=== PATIENT | female | born 1965 | race Caucasian/White ===

== ENCOUNTER 2018-01-28 08:50 | Day surgery (SDC) | payer MEDICAID ==
[~2018-01-28 08:50] MED LIST: CEPH-571 PO; CLIN300C85 PO
[2018-01-28] MEDS ORDERED: LIDOcaine/PRILOcaine 5gm cream TP ONE (10:17)
[2018-01-28] MEDS ORDERED: SYN0.088T PO (12:09)
== END 2018-01-28 12:15 | disposition home or self-care (01) ==
LOC: WOUND CARE 08:50
PROVIDERS: ATTEND Surgery
DX: L97.212 Non-pressure chronic ulcer of right calf with fat layer exposed (principal); L97.511 Non-pressure chronic ulcer of other part of right foot limited to breakdown of skin; F17.200 Nicotine dependence, unspecified, uncomplicated; F10.10 Alcohol abuse, uncomplicated; F12.10 Cannabis abuse, uncomplicated
CPT/HCPCS: 11042; 11045; 87070; 87075; 87077; 87102; 87176; 87186; A6021; A6209; A6223; A6446

== ENCOUNTER 2018-02-04 09:00 | Day surgery (SDC) | payer MEDICAID ==
[~2018-02-04 09:00] MED LIST changes: -CEPH-571 PO; -CLIN300C85 PO; +SYN0.088T PO
[2018-02-04] MEDS ORDERED: LIDOcaine/PRILOcaine 5gm cream TP ONE (10:32)
== END 2018-02-04 10:30 | disposition home or self-care (01) ==
LOC: WOUND CARE 09:00
PROVIDERS: ATTEND Surgery
DX: L97.212 Non-pressure chronic ulcer of right calf with fat layer exposed (principal); L97.511 Non-pressure chronic ulcer of other part of right foot limited to breakdown of skin; F17.200 Nicotine dependence, unspecified, uncomplicated; F10.10 Alcohol abuse, uncomplicated; F12.10 Cannabis abuse, uncomplicated
CPT/HCPCS: 97597; 97598; A6021; A6206; A6212; A6213

== ENCOUNTER 2018-02-11 09:55 | Day surgery (SDC) | payer MEDICAID ==
[2018-02-11] MEDS ORDERED: LIDOcaine/PRILOcaine 5gm cream TP ONE (12:29)
[2018-02-11] MEDS ORDERED: LIDOcaine 1%/PF 5ML 10 MG/ML VIAL ONE (13:00)
[2018-02-11] MEDS ORDERED: RIFA300C4 (15:43)
== END 2018-02-11 14:00 | disposition home or self-care (01) ==
LOC: WOUND CARE 09:55
PROVIDERS: ATTEND Surgery
DX: L97.212 Non-pressure chronic ulcer of right calf with fat layer exposed (principal); L97.511 Non-pressure chronic ulcer of other part of right foot limited to breakdown of skin; L98.492 Non-pressure chronic ulcer of skin of other sites with fat layer exposed; F17.200 Nicotine dependence, unspecified, uncomplicated; F10.10 Alcohol abuse, uncomplicated; F12.10 Cannabis abuse, uncomplicated; Z86.19 Personal history of other infectious and parasitic diseases
CPT/HCPCS: 10061; 87070; 87075; 87077; 87102; 87186; 97597; 97598; A6021; A6209; A6223; A6266; J2001

== ENCOUNTER 2018-02-15 10:15 | Day surgery (SDC) | payer MEDICAID ==
[~2018-02-15 10:15] MED LIST changes: +RIFA300C4
[2018-02-15] MEDS ORDERED: LIDOcaine/PRILOcaine 5gm cream TP ONE (12:15)
[2018-02-15] MEDS ORDERED: TRAM50TA2 PO (14:54)
== END 2018-02-15 13:52 | disposition home or self-care (01) ==
LOC: WOUND CARE 10:15
PROVIDERS: ATTEND Surgery
DX: L97.212 Non-pressure chronic ulcer of right calf with fat layer exposed (principal); I83.012 Varicose veins of right lower extremity with ulcer of calf; L97.511 Non-pressure chronic ulcer of other part of right foot limited to breakdown of skin; L98.492 Non-pressure chronic ulcer of skin of other sites with fat layer exposed; N75.1 Abscess of Bartholin's gland; F17.200 Nicotine dependence, unspecified, uncomplicated; F10.10 Alcohol abuse, uncomplicated; F12.10 Cannabis abuse, uncomplicated; Z86.19 Personal history of other infectious and parasitic diseases
CPT/HCPCS: 97597; 97605; A6021; A6206; A6212; A6222

== ENCOUNTER 2018-02-18 09:50 | Outpatient (CLI) | payer MEDICAID ==
[~2018-02-18 09:50] MED LIST changes: +TRAM50TA2 PO
== END 2018-02-18 12:08 | disposition home or self-care (01) ==
LOC: WOUND CARE 09:50 → EDSTATUS 10:30 → WOUND CARE 12:08
PROVIDERS: ATTEND Surgery
DX: L97.212 Non-pressure chronic ulcer of right calf with fat layer exposed (principal); I83.012 Varicose veins of right lower extremity with ulcer of calf; L97.511 Non-pressure chronic ulcer of other part of right foot limited to breakdown of skin; L98.492 Non-pressure chronic ulcer of skin of other sites with fat layer exposed; N75.1 Abscess of Bartholin's gland; F17.200 Nicotine dependence, unspecified, uncomplicated; F10.10 Alcohol abuse, uncomplicated; F12.10 Cannabis abuse, uncomplicated; Z86.19 Personal history of other infectious and parasitic diseases
CPT/HCPCS: 97605; A6021; A6206; A6212; A6446

== ENCOUNTER 2018-02-22 10:00 | Day surgery (SDC) | payer MEDICAID ==
[2018-02-22] MEDS ORDERED: LIDOcaine/PRILOcaine 5gm cream TP ONE (11:41)
== END 2018-02-22 13:43 | disposition home or self-care (01) ==
LOC: WOUND CARE 10:00
PROVIDERS: ATTEND Surgery
DX: L97.212 Non-pressure chronic ulcer of right calf with fat layer exposed (principal); I83.012 Varicose veins of right lower extremity with ulcer of calf; L97.511 Non-pressure chronic ulcer of other part of right foot limited to breakdown of skin; L97.811 Non-pressure chronic ulcer of other part of right lower leg limited to breakdown of skin; L98.492 Non-pressure chronic ulcer of skin of other sites with fat layer exposed; N75.1 Abscess of Bartholin's gland; F17.200 Nicotine dependence, unspecified, uncomplicated; F10.10 Alcohol abuse, uncomplicated; F12.10 Cannabis abuse, uncomplicated; Z86.19 Personal history of other infectious and parasitic diseases
CPT/HCPCS: 15271; A6021; A6206; A6209; A6212; A6223; A6446; Q4101; A6250

== ENCOUNTER 2018-02-26 10:00 | Outpatient (CLI) | payer MEDICAID ==
[2018-03-02] MEDS ORDERED: IBUP-1985 PO (15:43)
== END 2018-02-26 11:30 | disposition home or self-care (01) ==
LOC: WOUND CARE 10:00 → EDSTATUS 10:30 → WOUND CARE 11:30
PROVIDERS: ATTEND Surgery
DX: L97.212 Non-pressure chronic ulcer of right calf with fat layer exposed (principal); I83.012 Varicose veins of right lower extremity with ulcer of calf; L97.511 Non-pressure chronic ulcer of other part of right foot limited to breakdown of skin; L97.811 Non-pressure chronic ulcer of other part of right lower leg limited to breakdown of skin; L98.492 Non-pressure chronic ulcer of skin of other sites with fat layer exposed; N75.1 Abscess of Bartholin's gland; F17.200 Nicotine dependence, unspecified, uncomplicated; F10.10 Alcohol abuse, uncomplicated; F12.10 Cannabis abuse, uncomplicated; Z86.19 Personal history of other infectious and parasitic diseases
CPT/HCPCS: 97605; A6021; A6206; A6212; A6446

== ENCOUNTER 2018-03-25 09:48 | Day surgery (SDC) | payer MEDICAID ==
[~2018-03-25 09:48] MED LIST changes: +IBUP-1985 PO
== END 2018-03-25 12:06 | disposition home or self-care (01) ==
LOC: WOUND CARE 09:48
PROVIDERS: ATTEND Surgery
DX: L97.211 Non-pressure chronic ulcer of right calf limited to breakdown of skin (principal); I83.012 Varicose veins of right lower extremity with ulcer of calf; L97.511 Non-pressure chronic ulcer of other part of right foot limited to breakdown of skin; L97.811 Non-pressure chronic ulcer of other part of right lower leg limited to breakdown of skin; L97.121 Non-pressure chronic ulcer of left thigh limited to breakdown of skin; N75.1 Abscess of Bartholin's gland; F17.200 Nicotine dependence, unspecified, uncomplicated; F10.10 Alcohol abuse, uncomplicated; F12.10 Cannabis abuse, uncomplicated; Z86.19 Personal history of other infectious and parasitic diseases
CPT/HCPCS: 97597; A6223; A6021; A6446

== ENCOUNTER 2018-04-01 09:55 | Day surgery (SDC) | payer MEDICAID | END 2018-04-01 12:03 | disposition home or self-care (01) | LOC: WOUND CARE 09:55 | PROVIDERS: ATTEND Surgery | DX: L97.212 Non-pressure chronic ulcer of right calf with fat layer exposed (principal); I83.012 Varicose veins of right lower extremity with ulcer of calf; N75.1 Abscess of Bartholin's gland; F17.200 Nicotine dependence, unspecified, uncomplicated; F10.10 Alcohol abuse, uncomplicated; F12.10 Cannabis abuse, uncomplicated; Z86.19 Personal history of other infectious and parasitic diseases | CPT/HCPCS: 97597; A6223; A6021; A6446 ==

== ENCOUNTER 2018-04-06 09:50 | Outpatient (CLI) | payer MEDICAID | END 2018-04-06 10:14 | disposition home or self-care (01) | LOC: WOUND CARE 09:50 → EDSTATUS 10:00 → WOUND CARE 10:14 | PROVIDERS: ATTEND Surgery | DX: I83.012 Varicose veins of right lower extremity with ulcer of calf (principal); L97.212 Non-pressure chronic ulcer of right calf with fat layer exposed; N75.1 Abscess of Bartholin's gland; F17.200 Nicotine dependence, unspecified, uncomplicated; F10.10 Alcohol abuse, uncomplicated; F12.10 Cannabis abuse, uncomplicated; Z86.19 Personal history of other infectious and parasitic diseases | CPT/HCPCS: 99211; A6222; A6021; A6446 ==

== ENCOUNTER 2018-04-13 09:51 | Day surgery (SDC) | payer MEDICAID | END 2018-04-13 11:01 | disposition home or self-care (01) | LOC: WOUND CARE 09:51 | PROVIDERS: ATTEND Surgery | DX: I83.012 Varicose veins of right lower extremity with ulcer of calf (principal); L97.212 Non-pressure chronic ulcer of right calf with fat layer exposed; N75.1 Abscess of Bartholin's gland; F17.200 Nicotine dependence, unspecified, uncomplicated; F10.10 Alcohol abuse, uncomplicated; F12.10 Cannabis abuse, uncomplicated; Z86.19 Personal history of other infectious and parasitic diseases | CPT/HCPCS: 97597; A6206; A6212 ==

== ENCOUNTER 2018-04-29 09:49 | Day surgery (SDC) | payer MEDICAID ==
[2018-04-29] MEDS ORDERED: LIDOcaine/PRILOcaine 5gm cream TP ONE (10:18)
--- NOTE | 2018-04-29 13:48 | NUR ---
Patient ambulated independently from [facility] and was admitted to outpatient wound care for physician visit with Yuri Neal MD. Dressing removed, wound cleansed and lidocaine applied per order. Patient assessed for changes in conditions, medications and medical history. Dr. Neal at bedside accompanied by RN. Wound assessed, time out performed by MD/RN. Wound debrided as detailed in the physician progress/procedure note. Plan of care discussed with patient. Dressings placed per MD orders. Patient instructed on the signs and symptoms of infection and to call the Wound Center if any occur or to go to the ED if we are closed: Increased pain in wound Increase in drainage from the wound Redness in the skin surrounding the wound Bleeding from the wound Temperature of 101 or greater Patient instructed that the weight of their body puts a large amount of pressure on their wounds. This pressure keeps the new tissue from growing and inhibits new blood vessels from forming. Explained that, if they continue to bear weight on a body part that has a wound, the time it takes to heal the wound increases, the wound may get worse or the wound may not heal at all. Patient verbalized understanding of all discharge instructions and plan of care and ambulated independently out to [facility] in stable condition with no sign or symptom of distress at time of discharge. Addendum: 04/29/18 at 1349 by Chandrika Mckeon RN Amended: Links added.
== END 2018-04-29 11:48 | disposition home or self-care (01) ==
LOC: WOUND CARE 09:49
PROVIDERS: ATTEND Surgery
DX: I83.012 Varicose veins of right lower extremity with ulcer of calf (principal); L97.212 Non-pressure chronic ulcer of right calf with fat layer exposed; L89.892 Pressure ulcer of other site, stage 2; N75.1 Abscess of Bartholin's gland; J44.9 Chronic obstructive pulmonary disease, unspecified; E03.9 Hypothyroidism, unspecified; F10.10 Alcohol abuse, uncomplicated; F12.10 Cannabis abuse, uncomplicated; F17.210 Nicotine dependence, cigarettes, uncomplicated; Z86.19 Personal history of other infectious and parasitic diseases; Z79.899 Other long term (current) drug therapy; Z71.51 Drug abuse counseling and surveillance of drug abuser
CPT/HCPCS: 17250; 97597; A6021; A6212

== ENCOUNTER 2018-05-06 09:50 | Day surgery (SDC) | payer MEDICAID ==
--- NOTE | 2018-05-06 14:41 | NUR ---
1000 Patient ambulated safely into [facility]. Patient admitted to outpatient wound care clinic for follow-up visit with physician. Patient placed in isolation per isolation protocol. Dressing removed, wound cleansed. Patient assessed for changes in conditions, medications and medical history. Patient showed no s/s of distress at time of assessment. 1125 at bedside accompanied by RN. Wounds assessed, time out performed and debridement done today as detailed in the physician progress/procedure note. Plan of care discussed with patient. Dressings placed by wound care staff. Patient instructed on the signs and symptoms of infection and to call the Wound Center if any occur or to go to the ED if we are closed: Increased pain in wound Increase in drainage from the wound Redness in the skin surrounding the wound Bleeding from the wound Temperature of 101 or greater Patient instructed that the weight of their body puts a large amount of pressure on their wounds. This pressure keeps the new tissue from growing and inhibits new blood vessels from forming. Explained that, if they continue to bear weight on a body part that has a wound, the time it takes to heal the wound increases, the wound may get worse or the wound may not heal at all. Patient verbalized understanding of all discharge instructions and plan of care. Patient ambulated independently out to [facility] and is in stable condition with no sign or symptom of distress at time of discharge.
== END 2018-05-06 12:05 | disposition home or self-care (01) ==
LOC: WOUND CARE 09:50
PROVIDERS: ATTEND Surgery
DX: I83.012 Varicose veins of right lower extremity with ulcer of calf (principal); L97.212 Non-pressure chronic ulcer of right calf with fat layer exposed; L89.892 Pressure ulcer of other site, stage 2; N75.1 Abscess of Bartholin's gland; J44.9 Chronic obstructive pulmonary disease, unspecified; E03.9 Hypothyroidism, unspecified; F10.10 Alcohol abuse, uncomplicated; F12.10 Cannabis abuse, uncomplicated; F17.210 Nicotine dependence, cigarettes, uncomplicated; Z86.19 Personal history of other infectious and parasitic diseases; Z79.899 Other long term (current) drug therapy; Z71.51 Drug abuse counseling and surveillance of drug abuser
CPT/HCPCS: 97597; A6222; A6021; A6212

== ENCOUNTER 2018-05-13 09:55 | Day surgery (SDC) | payer MEDICAID ==
[~2018-05-13 09:55] MED LIST changes: -RIFA300C4
[2018-05-13] MEDS ORDERED: LIDOcaine/PRILOcaine 5gm cream TP ONE (11:23)
--- NOTE | 2018-05-13 13:37 | NUR ---
Patient ambulated safely into [facility]. Patient admitted to outpatient wound care clinic for follow-up visit with physician. Dressing removed, wound cleansed and Emla cream applied per order. Patient assessed for changes in conditions, medications and medical history. Patient showed no s/s of distress at time of assessment. [id number] at bedside accompanied by RN. Wounds assessed and wound #1 debrided with a scalpel. Minimal bleeding noted. Hemostasis achieve with applied pressure. Patient tolerated procedure well. Dressings applied per physician orders. Patient instructed on the signs and symptoms of infection and to call the Wound Center if any occur or to go to the ED if we are closed: Increased pain in wound Increase in drainage from the wound Redness in the skin surrounding the wound Bleeding from the wound Temperature of 101 or greater Patient instructed that the weight of their body puts a large amount of pressure on their wounds. This pressure keeps the new tissue from growing and inhibits new blood vessels from forming. Explained that, if they continue to bear weight on a body part that has a wound, the time it takes to heal the wound increases, the wound may get worse or the wound may not heal at all. Patient verbalized understanding of all instructions and POC. Patient instructed to return to wound care clinic for scheduled follow-up appointment with physician. Patient left in stable condition with no complaints. Addendum: 05/13/18 at 1342 by Chandrika Mckeon RN Amended: Links added.
== END 2018-05-13 12:02 | disposition home or self-care (01) ==
LOC: WOUND CARE 09:55
PROVIDERS: ATTEND Surgery
DX: I83.012 Varicose veins of right lower extremity with ulcer of calf (principal); L97.212 Non-pressure chronic ulcer of right calf with fat layer exposed; L89.892 Pressure ulcer of other site, stage 2; N75.1 Abscess of Bartholin's gland; J44.9 Chronic obstructive pulmonary disease, unspecified; E03.9 Hypothyroidism, unspecified; F10.10 Alcohol abuse, uncomplicated; F12.10 Cannabis abuse, uncomplicated; F17.210 Nicotine dependence, cigarettes, uncomplicated; Z86.19 Personal history of other infectious and parasitic diseases; Z79.899 Other long term (current) drug therapy; Z71.51 Drug abuse counseling and surveillance of drug abuser; Z86.14 Personal history of Methicillin resistant Staphylococcus aureus infection
CPT/HCPCS: 97597; A6021; A6206; A6212

== ENCOUNTER 2018-05-20 09:53 | Outpatient (CLI) | payer MEDICAID ==
[2018-05-20] MEDS ORDERED: LIDOcaine/PRILOcaine 5gm cream TP ONE (11:35)
[2018-05-20] MEDS ORDERED: mupirocin 2% ointment 22GM ONE (12:16)
[2018-05-20] MEDS ORDERED: CIPR-259 PO (15:33)
--- NOTE | 2018-05-20 15:34 | NUR ---
Patient ambulated independently from [facility] and was admitted to outpatient wound care for physician visit. Dressing removed, wound cleansed and Emla applied per order. Patient assessed for changes in conditions, medications and medical history. Dr. Neal at bedside accompanied by RN. Wounds assessed and diagnosed as healed. New wound located on right great toe space noted. No debridement was done. Plan of care discussed with patient. Dressings placed per MD orders. Patient instructed on the signs and symptoms of infection and to call the Wound Center if any occur or to go to the ED if we are closed: Increased pain in wound Increase in drainage from the wound Redness in the skin surrounding the wound Bleeding from the wound Temperature of 101 or greater Patient instructed that the weight of their body puts a large amount of pressure on their wounds. This pressure keeps the new tissue from growing and inhibits new blood vessels from forming. Explained that, if they continue to bear weight on a body part that has a wound, the time it takes to heal the wound increases, the wound may get worse or the wound may not heal at all. Patient verbalized understanding of all discharge instructions and plan of care and ambulated independently out to [facility] in stable condition with no sign or symptom of distress at time of discharge. Addendum: 05/20/18 at 1536 by Chandrika Mckeon RN Amended: Links added.
== END 2018-05-20 12:22 | disposition home or self-care (01) ==
LOC: WOUND CARE 09:53 → EDSTATUS 10:00 → WOUND CARE 12:22
PROVIDERS: ATTEND Surgery
DX: L89.892 Pressure ulcer of other site, stage 2 (principal); L98.491 Non-pressure chronic ulcer of skin of other sites limited to breakdown of skin; I87.2 Venous insufficiency (chronic) (peripheral); N75.1 Abscess of Bartholin's gland; J44.9 Chronic obstructive pulmonary disease, unspecified; E03.9 Hypothyroidism, unspecified; F10.10 Alcohol abuse, uncomplicated; F12.10 Cannabis abuse, uncomplicated; F17.210 Nicotine dependence, cigarettes, uncomplicated; Z86.19 Personal history of other infectious and parasitic diseases; Z79.899 Other long term (current) drug therapy; Z71.51 Drug abuse counseling and surveillance of drug abuser; Z86.14 Personal history of Methicillin resistant Staphylococcus aureus infection
CPT/HCPCS: G0463

== ENCOUNTER 2018-05-27 10:06 | Outpatient (CLI) | payer MEDICAID ==
[~2018-05-27 10:06] MED LIST changes: +CIPR-259 PO
--- NOTE | 2018-05-27 14:47 | NUR ---
Patient ambulated independently from [facility] and was admitted to outpatient wound care for physician visit with Yuri Neal MD. Patient assessed for changes in conditions, medications and medical history. Dr. Neal at bedside accompanied by RN. Wound assessed and no debridement was done. Patient was diagnosed as healed. Patient instructed on the signs and symptoms of infection and to call the Wound Center if any occur or to go to the ED if we are closed: Increased pain in wound Increase in drainage from the wound Redness in the skin surrounding the wound Bleeding from the wound Temperature of 101 or greater Patient verbalized understanding of all discharge instructions and plan of care and ambulated independently out to [facility] in stable condition with no sign or symptom of distress at time of discharge. Addendum: 05/27/18 at 1452 by Chandrika Mckeon RN Amended: Links added.
== END 2018-05-27 11:18 | disposition home or self-care (01) ==
LOC: WOUND CARE 10:06
PROVIDERS: ATTEND Surgery
DX: L98.491 Non-pressure chronic ulcer of skin of other sites limited to breakdown of skin (principal); L03.031 Cellulitis of right toe; I87.2 Venous insufficiency (chronic) (peripheral); N75.1 Abscess of Bartholin's gland; J44.9 Chronic obstructive pulmonary disease, unspecified; E03.9 Hypothyroidism, unspecified; F10.10 Alcohol abuse, uncomplicated; F12.10 Cannabis abuse, uncomplicated; F17.210 Nicotine dependence, cigarettes, uncomplicated; Z86.19 Personal history of other infectious and parasitic diseases; Z79.899 Other long term (current) drug therapy; Z71.51 Drug abuse counseling and surveillance of drug abuser; Z86.14 Personal history of Methicillin resistant Staphylococcus aureus infection
CPT/HCPCS: G0463

== ENCOUNTER 2019-05-20 11:53 | Emergency (ER) | payer MEDICAID ==
[~2019-05-20] VITALS: Ht 170.2 cm; Wt 80.0 kg
[2019-05-20 12:06] VITALS: BP 146/90
[2019-05-20] MEDS ORDERED: CLIN-90 PO (12:49)
== END 2019-05-20 13:17 | disposition home or self-care (01) ==
LOC: ER 11:53
DX: L03.111 Cellulitis of right axilla (principal); Z86.14 Personal history of Methicillin resistant Staphylococcus aureus infection; Z88.0 Allergy status to penicillin; Z88.5 Allergy status to narcotic agent; Z88.6 Allergy status to analgesic agent; Z79.899 Other long term (current) drug therapy
CPT/HCPCS: 99283

== ENCOUNTER 2024-08-31 11:46 | Inpatient (IN) | payer MEDICARE, MEDICAID ==
[~2024-08-31] VITALS: Ht 170.2 cm; Wt 96.3 kg
[~2024-08-31 11:46] MED LIST changes: +CLIN-97 PO; +methylPREDNISolone SOD SUCC 1000 MG in D5W 50ml IVPB (58ML) IV ONE
[2024-08-31 12:40] LABS: BASOPHILS % (AUTO) 0.8 % (0-1); EOSINOPHILS # (AUTO) 0.1 X10'3 (0-0.9); EOSINOPHILS % (AUTO) 1.9 % (0-6); HEMATOCRIT 34.2 % (35.0-45.0); HEMOGLOBIN 11.2 g/dl (12.0-16.0); LYMPHOCYTES # (AUTO) 0.4 X10'3 (1.1-4.8); LYMPHOCYTES % (AUTO) 12.2 % (21-51); MEAN CORPUSCULAR HEMOGLOBIN 27.7 PG (27.0-31.0); MEAN CORPUSCULAR HGB CONC 32.6 g/dL (33.0-36.5); MEAN PLATELET VOLUME 10.7 FL (7.4-10.4); MONOCYTES # (AUTO) 0.2 X10'3 (0-0.9); MONOCYTES % (AUTO) 6.9 % (2-12); NEUTROPHILS # (AUTO) 2.3 X10'3 (1.8-7.7); NEUTROPHILS % (AUTO) 78.2 % (42-75); RED BLOOD COUNT 4.03 X10'6 (4.20-5.60); RED CELL DISTRIBUTION WIDTH 14.2 % (11.5-14.5); WHITE BLOOD COUNT 2.9 X10'3 (4.5-11.0)
[2024-08-31 13:05] LABS: ALBUMIN 2.7 G/DL (3.4-5.0); ANION GAP 9 (8-16); BLOOD UREA NITROGEN 16 MG/DL (7-18); BUN/CREATININE RATIO 12.5 (10.0-20.0); CALCIUM 8.8 MG/DL (8.5-10.1); CHLORIDE 106 MMOL/L (99-107); CREATININE 1.28 MG/DL (0.40-0.90); GLUCOSE 85 MG/DL (70-104); POTASSIUM 4.1 MMOL/L (3.5-5.1); SODIUM 142 MMOL/L (135-145); eCRCL 44 ML/MIN; eGFR 43 ML/MIN
[2024-08-31 13:20] LABS: C-REACTIVE PROTEIN 1.58 MG/DL (0.0-0.5)
[2024-08-31 13:27] LABS: APTT 26 SECONDS (22-32); D-DIMER 2.36 MG/L FEU (0-0.50); PROTHROMBIN TIME 10.3 SECONDS (9.0-12.0)
[2024-08-31 13:29] LABS: PLATELET ESTIMATE DECREASED; TOTAL CELLS COUNTED 100
[2024-08-31 13:37] LABS: PLATELET COUNT 3 X10'3 (140-440)
[2024-08-31] MEDS ORDERED: methylPREDNISolone sod succ/PF 40mg inj. IV ONE (14:00)
--- NOTE | 2024-08-31 14:02 | Physician Documentation ---
History of Present Illness ~ Chief Complaint: Wound Stated Complaint: POSS DVT Time Seen by MD: 12:21 Primary Medical Doctor: DR. AMOS SNYDER Patient is seen today with complaints of newly appearing rash just over the last few days on her lower extremities and progressing up her upper extremities as well as very easy bruising of her upper extremities. Patient states she does have a mild headache currently. Patient denies any chest pain or shortness of breath or abdominal pain or recent injury or nausea, vomiting, diarrhea. Patient denies taking any blood thinners or anticoagulants. Patient denies any personal history of cancer. Medication Reconciliation Allergies: Coded Allergies: Penicillins (Verified Allergy, Unknown, VOMTING, HIVES, ITCHING, 08/31/24) acetaminophen (Verified Allergy, Unknown, LIVER PROBLEMS, 08/31/24) codeine (Verified Adverse Reaction, Unknown, VOMITING, 08/31/24) Scheduled Bupropion Hcl (Bupropion Hcl Sr), 1 TAB PO Q12H, (Reported) Bupropion Hcl SR* (Wellbutrin SR*), 1 TAB PO DAILY, (Reported) Cyclobenzaprine HCl (Cyclobenzaprine HCl), 1 TAB PO BID, (Reported) Gabapentin (Gabapentin), 3 CAP PO Q8H, (Reported) Levothyroxine Sodium* (Synthroid*), 137 MCG PO DAILY, (Reported) Omeprazole (Prilosec), 0.5 CAP PO BKF, (Reported) Discontinued Medications Ciprofloxacin HCl (Cipro), Unknown Dose PO Q12H, (Reported) Discontinued Reason: completed med therapy Clindamycin HCL* (Clindamycin HCL*), 1 CAP PO Q6H Discontinued Reason: patient no longer taking Fluticasone/Umeclidin/Vilanter (Trelegy Ellipta 100-62.5-25), 1 PUFFS INH DAILY, (Reported) Discontinued Reason: patient no longer taking Ibuprofen (Ibuprofen), 1 TAB PO DAILY, (Reported) Discontinued Reason: patient no longer taking Tramadol HCl (Tramadol HCl), 1 TABLET PO BID, (Reported) Discontinued Reason: patient no longer taking Past Medical History Past Medical History: MRSA Abscess Past Surgical History: no surgical history Drug Use: none Lives with: Family Lives In: Home Occupation: employed Review of Systems Constitutional: Denies: chills, fever, weakness Eyes: Denies: pain, blurred vision ENT: Denies: ear pain, nose pain, throat pain, mouth pain Respiratory: Denies: cough, shortness of breath Cardiovascular: Denies: chest pain, palpitations Gastrointestinal: Denies: abdominal pain, nausea, vomiting Genitourinary: Denies: burning, dysuria Female Genitalia: Denies: vaginal discharge, pelvic pain Neurological: Denies: headache, dizziness Musculoskeletal: Denies: pain, swelling Integumentary: Denies: rash, lesions Allergic/Immunologic: Denies: hives, itching Hematologic/Lymphatic: Denies: no symptoms reported Psychiatric: Denies: depression, anxiety Physical Exam Vital Signs: Temperature: 97.6, Heart Rate: 90, Respiratory Rate: 18, BP: 132/80, Pulse Oximetry: 97, Weight: 96.300 Physical Exam General: Awake and Alert, no acute distress. HEENT: Conjunctiva pink, Sclera clear, Mucus Membranes moist. Neck: Supple without masses and tenderness. Resp: Unlabored. Lungs clear to auscultation bilaterally. Heart: Regular Rate and rhythm, normal S1 and S2 without murmur, rub or gallop. Abdomen: Soft and non tender no organomegaly Extremities: No cyanosis,clubbing or edema. Skin: On exam the patient does have petechial rash of bilateral lower extremities worse on the right lower extremity. Patient also has some petechiae scattered progressing up her legs and arms. Patient has multiple bruises and superficial hematomas on her arms. Progress Progress Note Doctor Filiberto I discussed this case with the physician horticultural nursery assistant and helped with management and disposition 2:00 p.m. I discussed the case with Dr. Lemus critical care paper folder who recommended consulting Hematology. He did not think she needed to be in the ICU 3:00 p.m. Hematology at [facility] refused consult 3:31 p.m. 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 He recommended dexamethasone 40 mg daily. Follow up Jonathan TS 13/ hemolysis labs Results/Orders Reviewed/noted all lab results: Yes Results/Orders Orders - JANELLE DAVE MD Culture Blood (08/31/24 12:10) Saline Lock (08/31/24 12:10) Cult Mrsa Screen (08/31/24 12:10) [id number] Activity (08/31/24 13:59) Completed Orders - JANELLE DAVE MD Cbc/Diff (08/31/24 12:10) Procalcitonin (08/31/24 12:10) BMP (08/31/24 12:10) Lacticsepsis (08/31/24 12:10) C-Reactive Protein (08/31/24 12:25) Man Diff (08/31/24 12:25) Pathology Review (08/31/24 12:25) Fibrinogen (08/31/24 14:02) Methylprednisolone Sod Succ (Solumedrol (08/31/24 14:25) Hgb A1c (08/31/24 12:25) MG (08/31/24 12:25) PBNP (08/31/24 12:25) PHOS (08/31/24 12:25) Vital Signs 08/31/24 08/31/24 12:06 13:59 Temp 97.6 Pulse 90 87 Resp 18 16 B/P (MAP) 132/80 128/74 (92) Pulse Ox 97 98 Laboratory Tests Test 08/31/24 12:25 08/31/24 12:52 08/31/24 14:14 White Blood Count 2.9 L Red Blood Count 4.03 L Hemoglobin 11.2 L Hematocrit 34.2 L Mean Corpuscular Volume 85.0 Mean Corpuscular Hemoglobin 27.7 Mean Corpuscular Hemoglobin Concent 32.6 L Red Cell Distribution Width 14.2 Platelet Count 3 *L Mean Platelet Volume 10.7 H Neutrophils (%) (Auto) 78.2 H Lymphocytes (%) (Auto) 12.2 L Monocytes (%) (Auto) 6.9 Eosinophils (%) (Auto) 1.9 Basophils (%) (Auto) 0.8 Neutrophils # (Auto) 2.3 Lymphocytes # (Auto) 0.4 L Monocytes # (Auto) 0.2 Eosinophils # (Auto) 0.1 Basophils # (Auto) 0.0 CBC Comment Differential Total Cells Counted 100 Neutrophils % (Manual) 77.0 H Lymphocytes % (Manual) 15.0 L Monocytes % (Manual) 7.0 Eosinophils % (Manual) 1.0 Platelet Estimate Decreased Red Blood Cell Morphology Normal Basophilic Stippling Erythrocyte Sedimentation Rate 80 H Hematology Pathologist Comment See note D-Dimer Comment Coagulation Comments Sodium Level 142 Potassium Level 4.1 Chloride Level 106 Carbon Dioxide Level 27.0 Anion Gap 9 Blood Urea Nitrogen 16 Creatinine 1.28 H Estimated GFR/1.73 m2 43 BUN/Creatinine Ratio 12.5 Glucose Level 85 Hemoglobin A1c 5.2 Lactic Acid Level 0.7 Calcium Level 8.8 Phosphorus Level 3.7 Magnesium Level 2.0 C-Reactive Protein 1.58 H Pro-B-Type Natriuretic Peptide 277 H Albumin 2.7 L Procalcitonin < 0.05 Chemistry Comments Prothrombin Time 10.3 INR International Normalized Ratio 1.0 Activated Partial Thromboplast Time 26 D-Dimer 2.36 H Total Creatine Kinase 68 Lipase 22 Thyroid Stimulating Hormone (TSH) 0.23 L Fibrinogen 489 H Coagulation Clinical Comments Microbiology Date/Time Source Procedure Growth Status 08/31/24 12:29 Blood Arm Right Blood Culture - Preliminary NEGATIVE (LESS THAN 24 HOURS) Resulted Medical Decision Making Findings Patient is seen today with complaints of newly appearing rash just over the last few days on her lower extremities and progressing up her upper extremities as well as very easy bruising of her upper extremities. Patient states she does have a mild headache currently. Patient denies any chest pain or shortness of breath or abdominal pain or recent injury or nausea, vomiting, diarrhea. Patient denies taking any blood thinners or anticoagulants. Patient denies any personal history of cancer. Patient's initial labs did show critical value of low platelets at 3. Patient does have a chronic pancytopenia. Patient is lucid and does complain of a mild headache. CT scan of head was ordered and returned without any acute changes. We did consult heme Onc at [facility] who advised high dose steroids. Patient was admitted to hospitalist with the directive and direction of administration of high-dose steroids and platelets. 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 Patient does have a chronic pancytopenia. Patient is lucid and does complain of a mild headache. CT scan of head was ordered and returned without any acute changes. We did consult heme Onc at [facility] who advised high dose steroids. Patient was admitted to hospitalist with the directive and direction of administration of high-dose steroids and platelets. Referrals: NO PRIMARY CARE PROVIDER (PCP) Critical Care Note Total Time (mins): 30 Critical Care Note The very real possibility of a deterioration of this patient's condition required the highest level of my preparedness for sudden, emergent intervention. I provided critical care services, which included medication orders, frequent reevaluations of the patient's condition and response to treatment, ordering and reviewing test results, and discussing the case with various consultants. Excludes time spent performing separately billable procedures. The critical care time associated with the care of the patient was 30 minutes in the management of severe life-threatening thrombocytopenia with active bleeding requiring platelet transfusion Signature Scribe Signature: No scribe Attestation: No no scribe BART CHONG August 31, 2024 14:02 JANELLE DAVE MD August 31, 2024 15:33
--- NOTE | 2024-08-31 14:44 | RADIOLOGY REPORT ---
CLINICAL INFORMATION: Low platelet count with headache. TECHNIQUE: Axial imaging was obtained through the brain without contrast. Coronal and sagittal reform atted images were obtained, reviewed, and stored. Images were reviewed in brain and bone windows. Al l CT scans at this medical facility are performed using dose modulation techniques as appropriate to a performed exam including the following: Automated exposure control was utilized; adjustment of the MA and/or KV according to patient size; and use of iterative reconstruction technique. CTDIvol = 39.7 9 mGy DLP = 639.38 mGy-cm COMPARISON: None FINDINGS: There is no acute intracranial hemorrhage. No mass effect or midline shift. The ventricles and sulci are within normal limits in size for age. Basal cisterns are patent. The calvarium is unre markable. Moderate fluid levels in the maxillary sinuses partially visualized. Mastoid air cells are clear IMPRESSION: 1. No CT evidence of acute intracranial abnormality. 2. Fluid levels in the maxillary sinuses, likely due to sinusitis. Correlate with clinical findings.
[2024-08-31] MEDS: methylPREDNISolone SOD SUCC 1000 MG in D5W 50ml IVPB (58ML) IV ONE (15:26)
[2024-08-31 15:42] LABS: FIBRINOGEN 489 MG/DL (177-424)
[2024-08-31] MEDS ORDERED: bisacodyl 10mg suppository rectal RC PRN (16:40)
[2024-08-31] MEDS ORDERED: diphenhydrAMINE 50 mg/ml inj IV PRN (16:40)
[2024-08-31] MEDS ORDERED: mag hydrox/Alum hydrox/simeth 30ml oral suspension PO PRN (16:40)
[2024-08-31] MEDS ORDERED: magnesium sulf-water 4G/100mL 100 ML IV PRN (16:40)
[2024-08-31] MEDS ORDERED: magnesium sulf-water 2g/50mL 50 ML IV PRN (16:40)
[2024-08-31] MEDS ORDERED: ondansetron/PF 4mg/2ml inj IV PRN (16:40)
[2024-08-31] MEDS ORDERED: potassium Cl 40MEQ/1/2NS 520ml 520 ML IV PRN (16:40)
[2024-08-31] MEDS ORDERED: diphenhydrAMINE 25mg capsule PO PRN (16:40)
[2024-08-31] MEDS ORDERED: magnesium hydroxide 30ml (MOM) UD suspension PO PRN (16:40)
[2024-08-31] MEDS ORDERED: potassium Cl 20 mEq SR tablet PO PRN ×2 (16:40)
[2024-08-31] MEDS ORDERED: magnesium Cl slow-release 64mg tablet PO PRN (16:40)
--- NOTE | 2024-08-31 17:08 | HISTORY AND PHYSICAL ---
History & Physical Providers to Chief complaint, generalized rash most on upper lower extremity ~ History of Present Illness Reason for Admit\Complaint: As above History of Present Illness This is a 59 years old female with history of multiple medical problems including hepatitis-C on and off on treatment, history of CVA, history of heavy tobacco abuse, quit one year ago, history of COPD on home oxygen at night, secondary to chronic tobacco abuse, history of obstructive sleep apnea, hypothyroidism, peripheral neuropathy, bilateral maxillary sinusitis acute, pancytopenia, presented today to emergency department chief complaint generalized rash mostly on upper and lower extremity; in addition Patient is seen today with complaints of newly appearing rash just over the last few days on her lower extremities and progressing up her upper extremities as well as very easy bruising of her upper extremities. Patient states she does have a mild headache currently. Patient denies any chest pain or shortness of breath or abdominal pain or recent injury or nausea, vomiting, diarrhea. Patient denies taking any blood thinners or anticoagulants. Patient denies any personal history of cancer. Emergency department he was evaluated by physician medical provider, consulted ICU DrCindy And hematology DrCindy and after the decision was made to admit patient for further evaluation and treatment for ITP, including IV steroids, and transfuse of platelets. No additional complaint or concern Allergies: Coded Allergies: Penicillins (Verified Allergy, Unknown, VOMTING, HIVES, ITCHING, 08/31/24) acetaminophen (Verified Allergy, Unknown, LIVER PROBLEMS, 08/31/24) codeine (Verified Adverse Reaction, Unknown, VOMITING, 08/31/24) Active prescriptions I reviewed reconciled Home Medications Home Medications Active Clindamycin HCL* (Clindamycin HCl) 300 Mg Capsule 1 Cap PO Q6H 7 Days Reported Cipro (Ciprofloxacin) Unknown Strength Tablet Unknown Dose PO Q12H 7 Days Ibuprofen 600 Mg Tablet 1 Tab PO DAILY Tramadol HCl 50 Mg Tablet 1 Tablet PO BID Synthroid* (Levothyroxine Sodium) 88 Mcg Tablet 137 Mcg PO DAILY 30 Days Past Medical History Past Medical History As in HPI Past Surgical History Surgical History Comment As in HPI Family History Family History: Family history was reviewed; no changes noted. Past Social History Social History Comment Deny illicit drug use, or alcohol or tobacco use now, live with the family good social support, ex-smoker quit one year ago Health Maintenance Health Maintenance Noncontributory ROS ROS Constitutional : no fever , no chills, or weakness. No diaphoresis. Allergic/Immunologic, no lymphadenopathy, positive for generalized rash mostly on upper and lower extremity Eyes, no recent visual changes, no eye pain, no photophobia. Ears, nose, mouth, throat, no sore throat, no nosebleed, no ear pain. Cardiovascular, no palpitations, skipped beats, chest pain, no peripheral edema, Respiratory, no dyspnea, orthopnea, cough, hemoptysis, chest wall pain. Gastrointestinal, no abdominal pain, nausea, vomiting, constipation or diarrhea. : no dysuria, hematuria, pelvic pain, urethral d/c. Endocrine, no polyuria, polydipsia, recent unintentional weight gain or loss. Hematologic/Lymphatic, no petechiae, no enlarged lymph nodes, no bone pain. Integumentary, no rash, no skin lesions, Musculoskeletal, no muscle aches, or pain, no muscle cramps, no recent change in gait Neurological, no dizziness, no headache, no syncope, no paresthesia. Psychiatric, no delusions, visual hallucinations, or hearing hallucinations. ROS - in rest is as in HPI. Exam Vitals: Vital Signs Date Time Temp Pulse Resp B/P (MAP) Pulse Ox O2 Delivery O2 Flow Rate FiO2 08/31/24 13:59 87 16 128/74 (92) 98 08/31/24 12:06 97.6 Vital signs, stable ,afebrile. Pulse Oximetry reflects adequate oxygenation. BMI is 34, weight 96 kg General: well developed, well nourished. Awake , alert, and oriented x4, resting comfortably in the bed, in no acute distress . Skin: Warm, dry, no pallor, positive for generalized rash, purpura, upper and lower extremity mostly HEENT: Atraumatic, normocephalic, EOMI, anicteric sclera B; pink conjunctiva; PERRLA, normal oropharynx, moist oral and nasal mucosa. Tympanic membrane , nose , throat clear. Neck: Trachea midline. Supple, full range of motion, no JVD, bruit , hepatojugular reflex , lymphadenopathy or masses, or other lesions Cardiac: Regular rhythm, regular rate no murmurs, rubs, or gallops. Normal S1 and S2, no S3 noticed. PMI is normal. Respiratory: Equal breath sounds bilaterally, no tachypnea; lungs clear to auscultation bilaterally, no wheezing ,rub or rales, or crackles. Chest wall is symmetric and without deformity. No signs of trauma. Chest wall is nontender. No signs of respiratory distress. Resonance is normal upon percussion bilaterally. Gastrointestinal: Abdomen symmetric, non-distended, soft, non-tender, normal bowel sounds x4 quadrant, normoactive, no hepatosplenomegaly , no masses , no bruit, no flank pain bilaterally. No voluntary guarding, rebound, or rigidity. No tenderness to percussion. No pulsatile masses. Equal femoral pulses. No Coffey's sign or McBurney point tenderness. Back; no CVA tenderness bilaterally, no deformities. Neck and back are without deformity as well. No tenderness noted on palpation of the spinous processes. Spinous processes are midline. Cervical, thoracic, and lumbar paraspinal muscles are not tender and are without spasm. Musculoskeletal: Extremities, normal range of motion, non-tender, muscle strength 5/5 x 4. Negative Homans signs bilaterally on lower extremity. Distal pulses full symmetrical, no clubbing, cyanosis , edema. Neurological: Speech is clear, alert, and oriented x 4. No motor or sensory deficit, deep tendon reflexes normal, cerebellar intact. Cranial nerves II-XII intact. Psych: Alert and or appropriate, normal affect. Vascular: Good distal pulses, which are equal x4; capillary refill less than 2 seconds. Lymphatic, no lymphadenopathy. Diagnostic Data Last Recorded Lab Results: 08/31/24 1225 08/31/24 1225 Diagnostic Data: Laboratory Tests Test 08/31/24 12:52 08/31/24 14:14 Prothrombin Time 10.3 SECONDS (9.0-12.0) INR International Normalized Ratio 1.0 INR Activated Partial Thromboplast Time 26 SECONDS (22-32) D-Dimer 2.36 MG/L FEU (0-0.50) H D-Dimer Comment Coagulation Comments Fibrinogen 489 MG/DL (177-424) H Coagulation Clinical Comments Advance Care Planning Advanced Care plannin - 30 Minutes Additional Plan Assessment Generalized rash, purpura, mostly upper and lower extremity Severe ITP, platelets 3 Pancytopenia Acute maxillary sinusitis, bilateral Chronic COPD secondary to tobacco abuse Chronic hypoxia on home oxygen at night secondary to COPD Obstructive sleep apnea Ex-smoker, quit one year ago History MR SA infection Additional comorbidities, history of hypothyroidism, peripheral neuropathy, hepatitis-C, CVA Plan IV fluids, steroids, antibiotics CT chest abdomen pelvis pending Transfuse platelets Echocardiography pending I reconciled home medications DVT gastropathy prophylaxis addressed Sepsis Screening Reassessment Date: August 31, 2024 Date of Service: August 31, 2024 Billing Provider: ERIC SAMS MD Common Visit Codes: [id number] INP/OBS CARE (HIGH) ERIC SAMS MD August 31, 2024 17:08
[2024-08-31 17:18] LABS: PHOSPHORUS 3.7 MG/DL (2.3-4.5); PRO BRAIN NATRIURETIC PEPTIDE 277 PG/ML (0-125)
[2024-08-31 17:23] LABS: CREATINE KINASE 68 U/L (26-192); LIPASE 22 U/L (16-77); THYROID STIMULATING HORMONE 0.23 ulU/ml (0.34-4.50)
[2024-08-31] MEDS: normal saline 1000ml 1,000 ML IV SCH (17:47)
[2024-08-31 17:48] LABS: HEMOGLOBIN A1C 5.2 % (4.5-6.2)
--- NOTE | 2024-08-31 17:49 | RADIOLOGY REPORT ---
Indication: sepsis Technique: CT axial images of the chest, abdomen and pelvis are obtained without intravenous contrast . Coronal and sagittal reformats were obtained. Radiation Dose Information: CTDI volume is 31.2 mGy. Dose-length product is 1698 mGy*cm Comparison: None FINDINGS: Trachea patent. No pneumothorax. Multifocal pulmonary airspace consolidation, tree-in-bud nodularity most pronounced within the right middle and lower lobes, left upper lobe lingular segment, left lowe r lobe. The heart is normal in size. Coronary artery calcification disease. Subcarinal lymph node measuring 12 mm. Pretracheal lymph node measuring 10 mm. No supraclavicular or axillary lymphadenopathy. The adrenal glands, pancreas are unremarkable in shape. No CT evidence for cholelithiasis. Liver unre markable in shape. Right hepatic lobe calcification measuring 8 mm consistent with remote granulomato us disease. The spleen is enlarged measuring 16.3 cm craniocaudal. 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 No hydronephrosis. Right renal cyst measuring 3.6 cm. No right hydronephrosis. There is a moderate size hiatal hernia. The small bowel loops are normal in caliber. Moderate volume stool within the colon. Normal appendix. Abdominal aortic atherosclerotic disease. Mild dilatation of the infrarenal abdominal aorta to 2.4 cm . Bladder partially distended. No free pelvic fluid. No inguinal lymphadenopathy. No aggressive osseous process. IMPRESSION: 1. Bilateral pulmonary airspace consolidation/tree-in-bud nodularity, likely sequela of infection/ pn eumonia. Recommend short-term follow-up chest CT to ensure resolution and exclude underlying pulmon funmilayo lesion. 2. Moderate size hiatal hernia. 3. Atherosclerotic disease. Coronary artery calcification disease. Aneurysmal dilatation infrarenal a bdominal aorta to 2.4 cm. 4. Mediastinal lymphadenopathy. 5. Splenomegaly 6. Other findings as described.
[2024-08-31] MEDS: docusate sod 100mg capsule PO SCH (19:28)
[2024-08-31] MEDS: K and/or MAG REPLACEMENT MC SCH (19:28)
[2024-08-31] MEDS ORDERED: BUPR150T8 PO (20:44)
[2024-08-31] MEDS ORDERED: CYCL-394 PO (20:44)
[2024-08-31] MEDS ORDERED: GABA-530 PO (20:44)
[2024-08-31] MEDS ORDERED: BUPR-114 PO (20:44)
[2024-08-31] MEDS ORDERED: FLUT1BLS4 INH (20:44)
[2024-08-31] MEDS ORDERED: OMEP40CA21 PO (20:44)
[2024-08-31 21:06] LABS: BILIRUBIN,URINE NEGATIVE (Neg); CLARITY,URINE CLEAR (Clear); COLOR,URINE YELLOW (Yellow); GLUCOSE, URINE NEGATIVE (Neg); KETONES,URINE NEGATIVE (Neg); LEUKOCYTE ESTERASE ,URINE NEGATIVE (Neg); NITRITES, URINE NEGATIVE (Neg); OCCULT BLOOD,URINE SMALL (Neg); PROTEIN,URINE NEGATIVE (Neg); UROBILINOGEN,URINE 0.2 E.U/dL (0.2-1.0)
[2024-08-31 21:15] VITALS: BP 142/91; PULSE 94; RESP 16; TEMP 97.5; O2SAT 96
[2024-08-31 21:23] LABS: UA COLLECTION TYPE CLN CATCH MIDSTREAM
[2024-08-31 21:27] LABS: URINE AMPHETAMINE SCREEN NEGATIVE (Neg); URINE BARBITUATE SCREEN NEGATIVE (Neg); URINE BENZODIAZEPINES SCREEN NEGATIVE (Neg); URINE CANNABINOID SCREEN NEGATIVE (Neg); URINE COCAINE SCREEN NEGATIVE (Neg); URINE METHADONE SCREEN NEGATIVE (Neg); URINE OPIATE SCREEN NEGATIVE (Neg); URINE PHENCYCLIDINE SCREEN NEGATIVE (Neg)
[2024-08-31 21:28] LABS: BACTERIA,URINE NONE SEEN /HPF (Neg); SQUAMOUS EPITHELIAL CELL,UR NONE SEEN /LPF (FEW); WBC,URINE 0-4 /HPF (0-4)
[2024-08-31 23:23] VITALS: BP_DIAS 85; PULSE 92; RESP 20; TEMP 94.9
[2024-08-31 23:47] VITALS: BP 148/93; PULSE 89; RESP 16; TEMP 98
[2024-09-01] VITALS (18 sets, daily range): BP systolic 110–137; BP diastolic 63–96; PULSE 86–103; RESP 12–23; TEMP 96.7–98; O2SAT 93–98
[2024-09-01 02:40] LABS: BASOPHILS % (AUTO) 0.2 % (0-1); EOSINOPHILS % (AUTO) 0.2 % (0-6); HEMATOCRIT 31.5 % (35.0-45.0); HEMOGLOBIN 10.5 g/dl (12.0-16.0); LYMPHOCYTES # (AUTO) 0.2 X10'3 (1.1-4.8); LYMPHOCYTES % (AUTO) 7.5 % (21-51); MEAN CORPUSCULAR HEMOGLOBIN 28.1 PG (27.0-31.0); MEAN CORPUSCULAR HGB CONC 33.2 g/dL (33.0-36.5); MEAN CORPUSCULAR VOLUME 84.5 FL (78-98); MEAN PLATELET VOLUME 8.9 FL (7.4-10.4); MONOCYTES % (AUTO) 1.7 % (2-12); NEUTROPHILS # (AUTO) 2.4 X10'3 (1.8-7.7); NEUTROPHILS % (AUTO) 90.4 % (42-75); RED BLOOD COUNT 3.73 X10'6 (4.20-5.60); RED CELL DISTRIBUTION WIDTH 14.2 % (11.5-14.5); WHITE BLOOD COUNT 2.6 X10'3 (4.5-11.0)
[2024-09-01 03:01] LABS: PLATELET COUNT 6 X10'3 (140-440)
[2024-09-01 03:06] LABS: ALANINE AMINOTRANSFERASE 17 U/L (12-78); ALBUMIN 2.6 G/DL (3.4-5.0); ALBUMIN/GLOBULIN RATIO 0.6 (1.1-1.5); ALKALINE PHOSPHATASE 134 IU/L (46-116); ANION GAP 11 (8-16); ASPARTATE AMINO TRANSFERASE 24 U/L (10-37); BILIRUBIN,TOTAL 0.3 MG/DL (0.1-1.0); BLOOD UREA NITROGEN 17 MG/DL (7-18); BUN/CREATININE RATIO 13.9 (10.0-20.0); CALCIUM 8.8 MG/DL (8.5-10.1); CHLORIDE 109 MMOL/L (99-107); CHOL/HDL RATIO 3.6 (0.00-4.99); CHOLESTEROL 158 MG/DL (0-200); CREATININE 1.22 MG/DL (0.40-0.90); GLUCOSE 167 MG/DL (70-104); HDL CHOLESTEROL 44 MG/DL (35-60); LDL CHOLESTEROL 94 MG/DL (50-100); SODIUM 144 MMOL/L (135-145); TOTAL CARBON DIOXIDE 24.4 MMOL/L (24-32); TOTAL PROTEIN 6.8 G/DL (6.4-8.2); TRIGLYCERIDES 72 MG/DL (20-135); eCRCL 48 ML/MIN; eGFR 45 ML/MIN
[2024-09-01 03:29] LABS: TOTAL CELLS COUNTED 100
[2024-09-01 03:30] LABS: PLATELET ESTIMATE DECREASED
[2024-09-01] MEDS: levoTHYROXINE 25mcg tablet PO SCH (07:21)
[2024-09-01] MEDS: levoTHYROXINE 112mcg tablet PO SCH (07:21)
[2024-09-01] MEDS: pantoprazole 40mg Tablet.DR PO SCH (07:22)
[2024-09-01] MEDS: gabapentin 300mg capsule PO SCH (07:22)
[2024-09-01] MEDS: fluticasone nasal spray 16GM bottle NS SCH (07:23)
[2024-09-01] MEDS: azithromycin/NS 500mg/250ml 250 ML IV SCH (07:23)
[2024-09-01] MEDS: buPROPion SR 150mg tablet PO SCH (07:26)
[2024-09-01] MEDS: dexamethasone sod phosphate 10mg/ml inj IV SCH (08:00)
--- NOTE | 2024-09-01 16:33 | CARDIOLOGY REPORT ---
APPROVED REPORT EXAM: Comprehensive 2D, Doppler, and color-flow Echocardiogram. Patient Location: ER RM 12 Blood Pressure: 128/74 mmHg Heart Rate: 84 bpm Rhythm: Sinus Indications Congestive Heart Failure Shortness of Breath NO HEEL PAINTER NO Previous ECHO 2D Dimensions LA Diam2.6 cm IVSd 0.9 (0.7-1.1cm) LVDd 3.7 cm PWd 1.0 (0.7-1.1cm) IVSs 1.3 (0.8-1.2cm) LVDs 2.1 (2.5-4.0cm) PWs 1.3 (0.8-1.2cm) LVOT Diameter 2.05 (1.8-2.4cm) LVEF(%) 75.5 (>50%) Ao Asc Diam.2.86 cm IVC 11.61 mmFS (%) 43.5 % SV 43.8 ml CO 3.7 L/min M-Mode Dimensions Left Atrium(MM) 2.95 (2.5-4.0cm) Aortic Root 3.26 (2.2-3.7cm) Aortic Cusp Exc 1.89 (1.5-2.0cm) MV EPSS 1.3 (<0.5cm) Aortic Valve AoV Peak Clarence. 129.2 cm/s AoV VTI 22.8 cm AO Peak GR. 6.7 mmHg AO Mean GR. 4 mmHg LVOT VTI 24.05 cm LVOT Peak Clarence. 115.8 cm/s JORGE(VTI)/BSA 3.47 cm2/m2 JORGE (VTI) 3.47 cm2 Mitral Valve MV E Velocity 64.4 cm/s MV Peak Gr. 2 mmHg MV DECEL TIME 200 ms MV A Velocity 72.8 cm/s MV PHT 56 ms E/A Ratio 0.9 MVA (PHT) 3.93 cm2 MV VMax72.7 cm/s TDI Lateral E' P. V11.34 cm/s E/Lateral E' 5.7 Tricuspid Valve TR P. Velocity 164 cm/s RAP ESTIMATE 10 mmHg TR Peak Gr. 11 mmHg RVSP 21 mmHg LEFT VENTRICLE Normal LV size and wall thickness. Overall systolic function is normal. Overall LVEF is 70-75%. RIGHT VENTRICLE RV is normal size and function. ATRIA The left atrium size is normal. AORTIC VALVE Trileaflet AV appears mildly sclerotic without stenosis. No insufficiency. MITRAL VALVE Mild mitral annular calcification without stenosis. Trace regurgitation. TRICUSPID VALVE The tricuspid valve is normal in structure with trace regurgitation. PULMONIC VALVE The pulmonary valve is normal in structure with physiologic insufficiency. GREAT VESSELS The aortic root is normal in size. The ascending aorta is normal in size. The IVC is normal in size a nd collapses >50% with inspiration. PERICARDIUM Normal pericardium. No effusion. Other Information Study Quality: Adequate Conclusion Overall LVEF is 70-75%. Normal LV size and wall thickness. Overall systolic function is normal. RV is normal size and function. Trileaflet AV appears mildly sclerotic without stenosis. No insufficiency. Mild mitral annular calcification without stenosis. Trace regurgitation. The tricuspid valve is normal in structure with trace regurgitation. The pulmonary valve is normal in structure with physiologic insufficiency. Normal pericardium. No effusion.
[2024-09-01] MEDS ORDERED: ipratropium/albuterol 3ml nebule NEB PRN (16:55)
[2024-09-01] MEDS: levoFLOXACIN-Levaquin 500mg/D5 100 ML IV SCH (17:11)
[2024-09-01 17:19] LABS: BASOPHILS % (AUTO) 0.1 % (0-1); EOSINOPHILS % (AUTO) 0 % (0-6); HEMATOCRIT 31.8 % (35.0-45.0); HEMOGLOBIN 10.6 g/dl (12.0-16.0); LYMPHOCYTES # (AUTO) 0.2 X10'3 (1.1-4.8); LYMPHOCYTES % (AUTO) 3.5 % (21-51); MEAN CORPUSCULAR HEMOGLOBIN 28.7 PG (27.0-31.0); MEAN CORPUSCULAR HGB CONC 33.5 g/dL (33.0-36.5); MEAN CORPUSCULAR VOLUME 85.8 FL (78-98); MEAN PLATELET VOLUME 9.7 FL (7.4-10.4); MONOCYTES # (AUTO) 0.1 X10'3 (0-0.9); MONOCYTES % (AUTO) 2.3 % (2-12); NEUTROPHILS % (AUTO) 94.1 % (42-75); RED BLOOD COUNT 3.71 X10'6 (4.20-5.60); RED CELL DISTRIBUTION WIDTH 14.3 % (11.5-14.5); WHITE BLOOD COUNT 6.4 X10'3 (4.5-11.0)
[2024-09-01 17:33] LABS: PLATELET COUNT 4 X10'3 (140-440)
--- NOTE | 2024-09-01 20:23 | PROGRESS NOTE ---
Daily Progress Note Providers to CC ~ no new complaint today, resting comfortably in the bed Central Line/PICC still needed: No Central Line/PICC Necessity: terminal carman nutrition Fragoso-Non Protocol Fragoso Indications Met/Not Met: F/C Indications Not Met Antibiotic Timeout Antibiotic Ordered?: Yes MRSA Education MRSA Education Provided to pt: Yes Subjective As above Objective Vital Signs Date Time Temp Pulse Resp B/P (MAP) Pulse Ox O2 Delivery O2 Flow Rate FiO2 09/01/24 18:03 91 16 97 Room Air* 0 21 09/01/24 15:00 97.8 130/77 (94) Vital signs, stable ,afebrile. Pulse Oximetry reflects adequate oxygenation. General: well developed, well nourished. Awake , alert, and oriented x4, resting comfortably in the bed, in no acute distress . Skin: Warm, dry, no pallor, no rash or petechiae. HEENT: Atraumatic, normocephalic, EOMI, anicteric sclera B; pink conjunctiva; PERRLA, normal oropharynx, moist oral and nasal mucosa. Tympanic membrane , nose , throat clear. Neck: Trachea midline. Supple, full range of motion, no JVD, bruit , hepatojugular reflex , lymphadenopathy or masses, or other lesions Cardiac: Regular rhythm, regular rate no murmurs, rubs, or gallops. Normal S1 and S2, no S3 noticed. PMI is normal. Respiratory: Equal breath sounds bilaterally, no tachypnea; lungs clear to auscultation bilaterally, no wheezing ,rub or rales, or crackles. Chest wall is symmetric and without deformity. No signs of trauma. Chest wall is nontender. No signs of respiratory distress. Resonance is normal upon percussion bilaterally. Gastrointestinal: Abdomen symmetric, non-distended, soft, non-tender, normal bowel sounds x4 quadrant, normoactive, no hepatosplenomegaly , no masses , no bruit, no flank pain bilaterally. No voluntary guarding, rebound, or rigidity. No tenderness to percussion. No pulsatile masses. Equal femoral pulses. No Coffey's sign or McBurney point tenderness. Back; no CVA tenderness bilaterally, no deformities. Neck and back are without deformity as well. No tenderness noted on palpation of the spinous processes. Spinous processes are midline. Cervical, thoracic, and lumbar paraspinal muscles are not tender and are without spasm Musculoskeletal: Extremities, normal range of motion, non-tender, muscle strength 5/5 x 4. Negative Homans signs bilaterally on lower extremity. Distal pulses full symmetrical, no clubbing, cyanosis , edema. Neurological: Speech is clear, alert, and oriented x 4. No motor or sensory deficit, deep tendon reflexes normal, cerebellar intact. Cranial nerves II-XII intact. Psych: Alert and or appropriate, normal affect. Vascular: Good distal pulses, which are equal x4; capillary refill less than 2 seconds. Lymphatic, no lymphadenopathy. Result Diagram: 09/01/24 1648 09/01/24 0200 Coagulation Studies Laboratory Tests Test 08/31/24 12:52 08/31/24 14:14 Prothrombin Time 10.3 SECONDS (9.0-12.0) INR International Normalized Ratio 1.0 INR Activated Partial Thromboplast Time 26 SECONDS (22-32) D-Dimer 2.36 MG/L FEU (0-0.50) H D-Dimer Comment Coagulation Comments Fibrinogen 489 MG/DL (177-424) H Coagulation Clinical Comments Problem\Assessment\Plan Assessment Generalized rash, purpura, mostly upper and lower extremity Severe ITP, platelets 3 Pancytopenia Acute maxillary sinusitis, bilateral Chronic COPD secondary to tobacco abuse Chronic hypoxia on home oxygen at night secondary to COPD Obstructive sleep apnea Ex-smoker, quit one year ago History MR SA infection Additional comorbidities, history of hypothyroidism, peripheral neuropathy, hepatitis-C, CVA Plan IV fluids, steroids, antibiotics CT chest abdomen pelvis , consistent with bilateral pneumonia Transfuse platelets, completed Echocardiography completed Hematology oncology doctor consult pending, doctor contacted awaiting reply I reconciled home medications DVT gastropathy prophylaxis addressed Sepsis Screening Reassessment Date: September 01, 2024 Date of Service: September 01, 2024 Billing Provider: ERIC SAMS MD Common Visit Codes: [id number] INP/OBS CARE(HIGH) ERIC SAMS MD September 01, 2024 20:23
[2024-09-02] VITALS (11 sets, daily range): BP systolic 12–148; BP diastolic 72–84; PULSE 80–96; RESP 16–20; TEMP 97.5–99.1; O2SAT 93–97
[2024-09-02 07:14] LABS: BASOPHILS % (AUTO) 0.1 % (0-1); EOSINOPHILS % (AUTO) 0 % (0-6); HEMOGLOBIN 10.5 g/dl (12.0-16.0); LYMPHOCYTES # (AUTO) 0.4 X10'3 (1.1-4.8); RED BLOOD COUNT 3.73 X10'6 (4.20-5.60); RED CELL DISTRIBUTION WIDTH 14.1 % (11.5-14.5)
[2024-09-02 07:17] LABS: HEMATOCRIT 31.4 % (35.0-45.0); LYMPHOCYTES % (AUTO) 5.6 % (21-51); MEAN CORPUSCULAR HEMOGLOBIN 28.1 PG (27.0-31.0); MEAN CORPUSCULAR HGB CONC 33.4 g/dL (33.0-36.5); MEAN CORPUSCULAR VOLUME 84.2 FL (78-98); MEAN PLATELET VOLUME 11.9 FL (7.4-10.4); MONOCYTES # (AUTO) 0.3 X10'3 (0-0.9); MONOCYTES % (AUTO) 5.2 % (2-12); NEUTROPHILS # (AUTO) 5.7 X10'3 (1.8-7.7); NEUTROPHILS % (AUTO) 89.1 % (42-75); WHITE BLOOD COUNT 6.4 X10'3 (4.5-11.0)
[2024-09-02 07:49] LABS: ALANINE AMINOTRANSFERASE 20 U/L (12-78); ALBUMIN 2.7 G/DL (3.4-5.0); ALBUMIN/GLOBULIN RATIO 0.7 (1.1-1.5); ALKALINE PHOSPHATASE 126 IU/L (46-116); ANION GAP 11 (8-16); ASPARTATE AMINO TRANSFERASE 31 U/L (10-37); BILIRUBIN,TOTAL 0.2 MG/DL (0.1-1.0); BLOOD UREA NITROGEN 25 MG/DL (7-18); CALCIUM 8.9 MG/DL (8.5-10.1); CHLORIDE 110 MMOL/L (99-107); CREATININE 1.19 MG/DL (0.40-0.90); GLUCOSE 86 MG/DL (70-104); MAGNESIUM 2.1 MG/DL (1.5-2.4); POTASSIUM 3.6 MMOL/L (3.5-5.1); SODIUM 145 MMOL/L (135-145); TOTAL PROTEIN 6.8 G/DL (6.4-8.2); eCRCL 49 ML/MIN; eGFR 46 ML/MIN
[2024-09-02 08:11] LABS: PLATELET COUNT 4 X10'3 (140-440)
--- NOTE | 2024-09-02 09:28 | RADIOLOGY REPORT ---
NUCLEAR MEDICINE VENTILATION/PERFUSION LUNG SCAN. INDICATION: PE TECHNIQUE: Following intravenous demonstration of 6 millicuries of technetium 99m MAA, and inhalati on of 40 mCi of Tc 99m DTPA scintigrams were obtained in multiple projections of the lungs. FINDINGS: There is normal uptake of radionuclide on both the ventilation and perfusion portions of the examinat ion. No mismatched perfusion defects are demonstrated. Uptake is normally homogeneous. IMPRESSION: Low probability for PE.
--- NOTE | 2024-09-02 19:25 | DISCHARGE SUMMARY ---
Discharge Summary Providers to CC ~ no new complaint today resting comfortably in the bed Discharge Summary Assessment Generalized rash, purpura, mostly upper and lower extremity Severe possible ITP, platelets 3 Status post 5 units of platelets transfusion with no changes in platelet count Pancytopenia Acute maxillary sinusitis, bilateral Chronic COPD secondary to tobacco abuse Chronic hypoxia on home oxygen at night secondary to COPD Obstructive sleep apnea Bilateral pneumonia, community-acquired mixed michael Gram-positive Gram-negative Ex-smoker, quit one year ago History MR SA infection Additional comorbidities, history of hypothyroidism, peripheral neuropathy, hepatitis-C, CVA Admission Diagnosis: ITP Admission Diagnosis Comment: Generalized rash, purpura, mostly upper and lower extremity Severe possible ITP, platelets 3 Status post 5 units of platelets transfusion with no changes in platelet count Pancytopenia Acute maxillary sinusitis, bilateral Chronic COPD secondary to tobacco abuse Chronic hypoxia on home oxygen at night secondary to COPD Obstructive sleep apnea Bilateral pneumonia, community-acquired mixed michael Gram-positive Gram-negative Ex-smoker, quit one year ago History MR SA infection Additional comorbidities, history of hypothyroidism, peripheral neuropathy, hepatitis-C, CVA Hospital Course DATE OF ADMISSION: August 31, 2024 DATE OF DISCHARGE: September 0212/2024 Discharge Diagnosis\Comment: Generalized rash, purpura, mostly upper and lower extremity Severe possible ITP, platelets 3 Status post 5 units of platelets transfusion with no changes in platelet count Pancytopenia Chronic diastolic CHF ejection fraction 70% yesterday on echocardiography Acute maxillary sinusitis, bilateral, on CT of the head Chronic COPD secondary to tobacco abuse Chronic hypoxia on home oxygen at night secondary to COPD Obstructive sleep apnea Splenomegaly, dimension 16.[address] chest abdomen pelvis Bilateral pneumonia, community-acquired mixed michael Gram-positive Gram-negative Ex-smoker, quit one year ago History MR SA infection Additional comorbidities, history of hypothyroidism, peripheral neuropathy, hepatitis-C, CVA Operations\Procedures: Non Consultants: Dr. Morton, Oncology Hematology Complications: Non Condition on DC: Stable for transfer Discharge Summary: This is a 59 years old female with history of multiple medical problems including hepatitis-C on and off on treatment, history of CVA, history of heavy tobacco abuse, quit one year ago, history of COPD on home oxygen at night, secondary to chronic tobacco abuse, history of obstructive sleep apnea, hypothyroidism, peripheral neuropathy, bilateral maxillary sinusitis acute, pancytopenia, presented today to emergency department chief complaint generalized rash mostly on upper and lower extremity; in addition Patient is seen today with complaints of newly appearing rash just over the last few days on her lower extremities and progressing up her upper extremities as well as very easy bruising of her upper extremities. Patient states she does have a mi ld headache currently. Patient denies any chest pain or shortness of breath or abdominal pain or recent injury or nausea, vomiting, diarrhea. Patient denies taking any blood thinners or anticoagulants. Patient denies any personal history of cancer. Emergency department he was evaluated by physician medical provider, consulted ICU DrCindy And hematology DrCindy and after the decision was made to admit patient for further evaluation and treatment for ITP, including IV steroids, and transfuse of platelets. No additional complaint or concern, after admission patient was extensively evaluated and treated including transfuse 5 units of platelets, with no changes in platelets count after transfusion, patient was discussed on medical staff conference, decision was made to transfer patient higher level of care, she was accepted at higher level hospital, for transfer, awaiting for the bed in the meantime, she feels fine now has no complaint, she will be transferred in stable condition to higher level of care, today on physical exam Vital signs, stable ,afebrile. Pulse Oximetry reflects adequate oxygenation. BMI is 33, weight 96 kg General: well developed, well nourished. Awake , alert, and oriented x4, resting comfortably in the bed, in no acute distress . Skin: Warm, dry, positive for generalized diffuse erythematous rash and petechiae. HEENT: Atraumatic, normocephalic, EOMI, anicteric sclera B; pink conjunctiva; PERRLA, normal oropharynx, moist oral and nasal mucosa. Tympanic membrane , nose , throat clear. Neck: Trachea midline. Supple, full range of motion, no JVD, bruit , hepatojugular reflex , lymphadenopathy or masses, or other lesions Cardiac: Regular rhythm, regular rate no murmurs, rubs, or gallops. Normal S1 and S2, no S3 noticed. PMI is normal. Respiratory: Equal breath sounds bilaterally, no tachypnea; lungs clear to auscultation bilaterally, no wheezing ,rub or rales, or crackles. Chest wall is symmetric and without deformity. No signs of trauma. Chest wall is nontender. No signs of respiratory distress. Resonance is normal upon percussion bilaterally. Gastrointestinal: Abdomen symmetric, non-distended, soft, non-tender, normal bowel sounds x4 quadrant, normoactive, no hepatosplenomegaly , no masses , no bruit, no flank pain bilaterally. No voluntary guarding, rebound, or rigidity. No tenderness to percussion. No pulsatile masses. Equal femoral pulses. No Coffey's sign or McBurney point tenderness. Back; no CVA tenderness bilaterally, no deformities. Neck and back are without deformity as well. No tenderness noted on palpation of the spinous processes. Spinous processes are midline. Cervical, thoracic, and lumbar paraspinal muscles are not tender and are without spasm. Musculoskeletal: Extremities, normal range of motion, non-tender, muscle strength 5/5 x 4. Negative Homans signs bilaterally on lower extremity. Distal pulses full symmetrical, no clubbing, cyanosis , edema. Neurological: Speech is clear, alert, and oriented x 4. No motor or sensory deficit, deep tendon reflexes normal, cerebellar intact. Cranial nerves II-XII intact. Psych: Alert and or appropriate, normal affect. Vascular: Good distal pulses, which are equal x4; capillary refill less than 2 seconds. Lymphatic, no lymphadenopathy. *Problems/Diagnosis: (1) Acute idiopathic thrombocytopenic purpura Status: Acute (2) Thrombocytopenia Status: Acute Total Time Spent on D/C: > 30 Minutes Date of Service: September 02, 2024 Billing Provider: ERIC SAMS MD Common Visit Codes: [id number] DISCH DAY >30min ERIC SAMS MD September 02, 2024 19:25
[2024-09-03 06:00] VITALS: BP 134/76; PULSE 88; RESP 20; TEMP 97.6; O2SAT 97
[2024-09-03 06:14] LABS: BASOPHILS % (AUTO) 0.2 % (0-1); EOSINOPHILS % (AUTO) 0 % (0-6); HEMOGLOBIN 10.7 g/dl (12.0-16.0); LYMPHOCYTES # (AUTO) 0.3 X10'3 (1.1-4.8); LYMPHOCYTES % (AUTO) 8.2 % (21-51); MEAN CORPUSCULAR HEMOGLOBIN 28.1 PG (27.0-31.0); MONOCYTES # (AUTO) 0.3 X10'3 (0-0.9); NEUTROPHILS # (AUTO) 3.2 X10'3 (1.8-7.7); WHITE BLOOD COUNT 3.9 X10'3 (4.5-11.0)
[2024-09-03 06:19] LABS: HEMATOCRIT 31.9 % (35.0-45.0); MEAN CORPUSCULAR HGB CONC 33.6 g/dL (33.0-36.5); MEAN CORPUSCULAR VOLUME 83.7 FL (78-98); MEAN PLATELET VOLUME 10.2 FL (7.4-10.4); MONOCYTES % (AUTO) 8.3 % (2-12); NEUTROPHILS % (AUTO) 83.3 % (42-75); RED BLOOD COUNT 3.81 X10'6 (4.20-5.60); RED CELL DISTRIBUTION WIDTH 14.4 % (11.5-14.5)
[2024-09-03 06:28] LABS: ALANINE AMINOTRANSFERASE 33 U/L (12-78); ALBUMIN 2.9 G/DL (3.4-5.0); ALBUMIN/GLOBULIN RATIO 0.7 (1.1-1.5); ALKALINE PHOSPHATASE 128 IU/L (46-116); ANION GAP 10 (8-16); ASPARTATE AMINO TRANSFERASE 38 U/L (10-37); BILIRUBIN,TOTAL 0.3 MG/DL (0.1-1.0); BLOOD UREA NITROGEN 24 MG/DL (7-18); BUN/CREATININE RATIO 21.2 (10.0-20.0); CALCIUM 8.8 MG/DL (8.5-10.1); CHLORIDE 110 MMOL/L (99-107); CREATININE 1.13 MG/DL (0.40-0.90); GLUCOSE 71 MG/DL (70-104); MAGNESIUM 2.1 MG/DL (1.5-2.4); POTASSIUM 3.7 MMOL/L (3.5-5.1); SODIUM 147 MMOL/L (135-145); TOTAL CARBON DIOXIDE 27.1 MMOL/L (24-32); TOTAL PROTEIN 6.9 G/DL (6.4-8.2); eCRCL 51 ML/MIN; eGFR 49 ML/MIN
[2024-09-03 06:51] LABS: PLATELET COUNT 4 X10'3 (140-440)
[2024-09-03 08:00] VITALS: RESP 20; O2SAT 93
[2024-09-03 10:14] VITALS: BP 128/79; PULSE 92; RESP 20; TEMP 97.9; O2SAT 94
[2024-09-03 18:00] VITALS: BP 118/74; PULSE 87; RESP 20; TEMP 97.7; O2SAT 96
[2024-09-03 20:00] VITALS: RESP 16; O2SAT 93
[2024-09-03 22:00] VITALS: BP 120/76; PULSE 78; RESP 20; TEMP 97.5; O2SAT 95
[2024-09-04] MEDS: morphine 2 MG/ML inj. syringe IV PRN (03:08)
[2024-09-04 05:53] LABS: EOSINOPHILS % (AUTO) 0.1 % (0-6); HEMOGLOBIN 11.1 g/dl (12.0-16.0); LYMPHOCYTES # (AUTO) 0.4 X10'3 (1.1-4.8); MONOCYTES # (AUTO) 0.3 X10'3 (0-0.9); WHITE BLOOD COUNT 3.7 X10'3 (4.5-11.0)
[2024-09-04 05:55] LABS: BASOPHILS % (AUTO) 0.4 % (0-1); HEMATOCRIT 33.5 % (35.0-45.0); LYMPHOCYTES % (AUTO) 9.9 % (21-51); MEAN CORPUSCULAR HEMOGLOBIN 27.9 PG (27.0-31.0); MEAN CORPUSCULAR HGB CONC 33.2 g/dL (33.0-36.5); MEAN CORPUSCULAR VOLUME 84.1 FL (78-98); MEAN PLATELET VOLUME 12.9 FL (7.4-10.4); NEUTROPHILS % (AUTO) 80.6 % (42-75); RED BLOOD COUNT 3.99 X10'6 (4.20-5.60); RED CELL DISTRIBUTION WIDTH 14.4 % (11.5-14.5)
[2024-09-04 05:59] LABS: PLATELET COUNT 3 X10'3 (140-440)
[2024-09-04 06:30] LABS: ALANINE AMINOTRANSFERASE 63 U/L (12-78); ALBUMIN 2.9 G/DL (3.4-5.0); ALBUMIN/GLOBULIN RATIO 0.7 (1.1-1.5); ALKALINE PHOSPHATASE 132 IU/L (46-116); ANION GAP 12 (8-16); ASPARTATE AMINO TRANSFERASE 67 U/L (10-37); BILIRUBIN,TOTAL 0.3 MG/DL (0.1-1.0); BLOOD UREA NITROGEN 26 MG/DL (7-18); BUN/CREATININE RATIO 24.1 (10.0-20.0); CALCIUM 8.8 MG/DL (8.5-10.1); CHLORIDE 110 MMOL/L (99-107); CREATININE 1.08 MG/DL (0.40-0.90); GLUCOSE 71 MG/DL (70-104); MAGNESIUM 2.1 MG/DL (1.5-2.4); POTASSIUM 3.7 MMOL/L (3.5-5.1); SODIUM 146 MMOL/L (135-145); TOTAL CARBON DIOXIDE 24.2 MMOL/L (24-32); TOTAL PROTEIN 6.8 G/DL (6.4-8.2); eCRCL 54 ML/MIN; eGFR 52 ML/MIN
[2024-09-04 06:50] VITALS: BP 144/86; PULSE 87; RESP 22; TEMP 97.6
[2024-09-04] MEDS: levoTHYROXINE 100mcg tablet PO SCH (07:49)
[2024-09-04 08:00] VITALS: RESP 18
[2024-09-04 08:26] VITALS: PULSE 89; RESP 20; O2SAT 98
[2024-09-04 10:00] VITALS: BP 109/77; PULSE 90; RESP 20; TEMP 97.8; O2SAT 96
[2024-09-04 18:00] VITALS: BP 122/64; PULSE 88; RESP 17; TEMP 98.7; O2SAT 96
--- NOTE | 2024-09-04 18:50 | PROGRESS NOTE ---
Daily Progress Note Providers to CC No new complaint today resting comfortably in the bed ~ Central Line/PICC still needed: No Fragoso-Non Protocol Fragoso Indications Met/Not Met: F/C Indications Not Met Antibiotic Timeout Antibiotic Ordered?: Yes MRSA Education MRSA Education Provided to pt: Yes Subjective As above Objective Vital Signs Date Time Temp Pulse Resp B/P (MAP) Pulse Ox O2 Delivery O2 Flow Rate FiO2 09/04/24 10:00 97.8 90 20 109/77 (88) 96 Room Air 09/04/24 08:26 0 21 Vital signs, stable ,afebrile. Pulse Oximetry reflects adequate oxygenation. General: well developed, well nourished. Awake , alert, and oriented x4, resting comfortably in the bed, in no acute distress . Skin: Warm, dry, no pallor, no rash or petechiae. HEENT: Atraumatic, normocephalic, EOMI, anicteric sclera B; pink conjunctiva; PERRLA, normal oropharynx, moist oral and nasal mucosa. Tympanic membrane , nose , throat clear. Neck: Trachea midline. Supple, full range of motion, no JVD, bruit , hepatojugular reflex , lymphadenopathy or masses, or other lesions Cardiac: Regular rhythm, regular rate no murmurs, rubs, or gallops. Normal S1 and S2, no S3 noticed. PMI is normal. Respiratory: Equal breath sounds bilaterally, no tachypnea; lungs clear to auscultation bilaterally, no wheezing ,rub or rales, or crackles. Chest wall is symmetric and without deformity. No signs of trauma. Chest wall is nontender. No signs of respiratory distress. Resonance is normal upon percussion bilaterally. Gastrointestinal: Abdomen symmetric, non-distended, soft, non-tender, normal bowel sounds x4 quadrant, normoactive, no hepatosplenomegaly , no masses , no bruit, no flank pain bilaterally. No voluntary guarding, rebound, or rigidity. No tenderness to percussion. No pulsatile masses. Equal femoral pulses. No Coffey's sign or McBurney point tenderness. Back; no CVA tenderness bilaterally, no deformities. Neck and back are without deformity as well. No tenderness noted on palpation of the spinous processes. Spinous processes are midline. Cervical, thoracic, and lumbar paraspinal muscles are not tender and are without spasm. Musculoskeletal: Extremities, normal range of motion, non-tender, muscle strength 5/5 x 4. Negative Homans signs bilaterally on lower extremity. Distal pulses full symmetrical, no clubbing, cyanosis , edema. Neurological: Speech is clear, alert, and oriented x 4. No motor or sensory deficit, deep tendon reflexes normal, cerebellar intact. Cranial nerves II-XII intact. Psych: Alert and or appropriate, normal affect. Vascular: Good distal pulses, which are equal x4; capillary refill less than 2 seconds. Lymphatic, no lymphadenopathy. Result Diagram: 09/04/2452209/04/24522 Coagulation Studies Laboratory Tests Test 08/31/24 12:52 08/31/24 14:14 Prothrombin Time 10.3 SECONDS (9.0-12.0) INR International Normalized Ratio 1.0 INR Activated Partial Thromboplast Time 26 SECONDS (22-32) D-Dimer 2.36 MG/L FEU (0-0.50) H D-Dimer Comment Coagulation Comments Fibrinogen 489 MG/DL (177-424) H Coagulation Clinical Comments Problem\Assessment\Plan Problems/Diagnosis: (1) Acute idiopathic thrombocytopenic purpura (2) Thrombocytopenia Assessment Generalized rash, purpura, mostly upper and lower extremity Severe ITP, platelets 3 Pancytopenia Acute maxillary sinusitis, bilateral Chronic COPD secondary to tobacco abuse Chronic hypoxia on home oxygen at night secondary to COPD Obstructive sleep apnea Ex-smoker, quit one year ago History MR SA infection Additional comorbidities, history of hypothyroidism, peripheral neuropathy, hepatitis-C, CVA Plan IV fluids, steroids, antibiotics CT chest abdomen pelvis , consistent with bilateral pneumonia Transfuse platelets, completed Echocardiography completed Hematology oncology doctor consult pending, doctor contacted awaiting reply I reconciled home medications DVT gastropathy prophylaxis addressed Date of Service: September 03, 2024 Billing Provider: ERIC SAMS MD Common Visit Codes: [id number] INP/OBS CARE(MOD) ERIC SAMS MD September 04, 2024 18:50
[2024-09-04 22:00] VITALS: BP 120/72; PULSE 79; RESP 22; TEMP 97.4; O2SAT 95
[2024-09-05 06:00] VITALS: BP 126/84; PULSE 88; RESP 16; TEMP 97.4; O2SAT 97
[2024-09-05 06:10] LABS: BASOPHILS % (AUTO) 0.4 % (0-1); EOSINOPHILS % (AUTO) 0.3 % (0-6); HEMATOCRIT 32.8 % (35.0-45.0); LYMPHOCYTES # (AUTO) 0.4 X10'3 (1.1-4.8); LYMPHOCYTES % (AUTO) 13.3 % (21-51); MEAN CORPUSCULAR HEMOGLOBIN 28.5 PG (27.0-31.0); MEAN CORPUSCULAR HGB CONC 33.5 g/dL (33.0-36.5); MEAN PLATELET VOLUME 11.1 FL (7.4-10.4); MONOCYTES # (AUTO) 0.3 X10'3 (0-0.9); MONOCYTES % (AUTO) 10.5 % (2-12); NEUTROPHILS # (AUTO) 2.4 X10'3 (1.8-7.7); NEUTROPHILS % (AUTO) 75.5 % (42-75); RED BLOOD COUNT 3.86 X10'6 (4.20-5.60); RED CELL DISTRIBUTION WIDTH 14.7 % (11.5-14.5); WHITE BLOOD COUNT 3.1 X10'3 (4.5-11.0)
[2024-09-05 06:33] LABS: PLATELET COUNT 3 X10'3 (140-440)
[2024-09-05 06:34] LABS: ALANINE AMINOTRANSFERASE 65 U/L (12-78); ALBUMIN 2.7 G/DL (3.4-5.0); ALBUMIN/GLOBULIN RATIO 0.8 (1.1-1.5); ALKALINE PHOSPHATASE 124 IU/L (46-116); ANION GAP 10 (8-16); ASPARTATE AMINO TRANSFERASE 54 U/L (10-37); BILIRUBIN,TOTAL 0.3 MG/DL (0.1-1.0); BLOOD UREA NITROGEN 26 MG/DL (7-18); BUN/CREATININE RATIO 24.3 (10.0-20.0); CALCIUM 8.5 MG/DL (8.5-10.1); CHLORIDE 109 MMOL/L (99-107); CREATININE 1.07 MG/DL (0.40-0.90); GLUCOSE 69 MG/DL (70-104); POTASSIUM 3.7 MMOL/L (3.5-5.1); SODIUM 142 MMOL/L (135-145); TOTAL CARBON DIOXIDE 22.8 MMOL/L (24-32); TOTAL PROTEIN 6.3 G/DL (6.4-8.2); eCRCL 54 ML/MIN; eGFR 52 ML/MIN
[2024-09-05] MEDS: dextrose 50%-water 50ml dispensing syringe IV ONE (07:06)
[2024-09-05 11:00] VITALS: BP 107/69; PULSE 95; RESP 15; TEMP 98.1; O2SAT 95
--- NOTE | 2024-09-05 11:24 | PROGRESS NOTE ---
Daily Progress Note Providers to CC ~ no new complaint today, resting comfortably in the bed awaiting for the bed availability, and transferred to [facility], to hematology oncology service Central Line/PICC still needed: No Fragoso-Non Protocol Fragoso Indications Met/Not Met: F/C Indications Not Met Antibiotic Timeout Antibiotic Ordered?: Yes MRSA Education MRSA Education Provided to pt: Yes Subjective As above Objective Vital Signs Date Time Temp Pulse Resp B/P (MAP) Pulse Ox O2 Delivery O2 Flow Rate FiO2 09/05/24 08:00 Room Air 0.0 21 09/05/24 06:00 97.4 88 16 126/84 (98) 97 Vital signs, stable ,afebrile. Pulse Oximetry reflects adequate oxygenation. General: well developed, well nourished. Awake , alert, and oriented x4, resting comfortably in the bed, in no acute distress . Skin: Warm, dry, no pallor, no rash or petechiae. HEENT: Atraumatic, normocephalic, EOMI, anicteric sclera B; pink conjunctiva; PERRLA, normal oropharynx, moist oral and nasal mucosa. Tympanic membrane , nose , throat clear. Neck: Trachea midline. Supple, full range of motion, no JVD, bruit , hepatojugular reflex , lymphadenopathy or masses, or other lesions Cardiac: Regular rhythm, regular rate no murmurs, rubs, or gallops. Normal S1 and S2, no S3 noticed. PMI is normal. Respiratory: Equal breath sounds bilaterally, no tachypnea; lungs clear to auscultation bilaterally, no wheezing ,rub or rales, or crackles. Chest wall is symmetric and without deformity. No signs of trauma. Chest wall is nontender. No signs of respiratory distress. Resonance is normal upon percussion bilaterally. Gastrointestinal: Abdomen symmetric, non-distended, soft, non-tender, normal bowel sounds x4 quadrant, normoactive, no hepatosplenomegaly , no masses , no bruit, no flank pain bilaterally. No voluntary guarding, rebound, or rigidity. No tenderness to percussion. No pulsatile masses. Equal femoral pulses. No Coffey's sign or McBurney point tenderness. Back; no CVA tenderness bilaterally, no deformities. Neck and back are without deformity as well. No tenderness noted on palpation of the spinous processes. Spinous processes are midline. Cervical, thoracic, and lumbar paraspinal muscles are not tender and are without spasm. Musculoskeletal: Extremities, normal range of motion, non-tender, muscle strength 5/5 x 4. Negative Homans signs bilaterally on lower extremity. Distal pulses full symmetrical, no clubbing, cyanosis , edema. Neurological: Speech is clear, alert, and oriented x 4. No motor or sensory deficit, deep tendon reflexes normal, cerebellar intact. Cranial nerves II-XII intact. Psych: Alert and or appropriate, normal affect. Vascular: Good distal pulses, which are equal x4; capillary refill less than 2 seconds. Lymphatic, no lymphadenopathy. Result Diagram: 09/05/24 0531 09/05/24 0531 Coagulation Studies Laboratory Tests Test 08/31/24 12:52 08/31/24 14:14 Prothrombin Time 10.3 SECONDS (9.0-12.0) INR International Normalized Ratio 1.0 INR Activated Partial Thromboplast Time 26 SECONDS (22-32) D-Dimer 2.36 MG/L FEU (0-0.50) H D-Dimer Comment Coagulation Comments Fibrinogen 489 MG/DL (177-424) H Coagulation Clinical Comments Problem\Assessment\Plan Problems/Diagnosis: (1) Acute idiopathic thrombocytopenic purpura (2) Thrombocytopenia Assessment Generalized rash, purpura, mostly upper and lower extremity Severe ITP, platelets 3 Pancytopenia Acute maxillary sinusitis, bilateral Chronic COPD secondary to tobacco abuse Chronic hypoxia on home oxygen at night secondary to COPD Obstructive sleep apnea Ex-smoker, quit one year ago History MR SA infection Additional comorbidities, history of hypothyroidism, peripheral neuropathy, hepatitis-C, CVA Plan IV fluids, steroids, antibiotics CT chest abdomen pelvis , consistent with bilateral pneumonia Transfuse platelets, completed Echocardiography completed Hematology oncology doctor consult pending, doctor contacted awaiting reply I reconciled home medications DVT gastropathy prophylaxis addressed Spoke on September 02, 2024 with the [facility], Dr.Shavudra Alysha MD , buildings and grounds superintendent oncologist, gave report regarding patient, and patient was accepted for transfer to higher level of care in their hospital. Awaiting for the bed availability. Sepsis Screening Reassessment Date: September 05, 2024 Date of Service: September 04, 2024 Billing Provider: ERIC SAMS MD Common Visit Codes: [id number] INP/OBS CARE(MOD) ERIC SAMS MD September 05, 2024 11:24
[2024-09-05 18:00] VITALS: BP 98/64; PULSE 93; RESP 17; TEMP 98.1; O2SAT 97
[2024-09-05 22:00] VITALS: BP 104/68; PULSE 84; RESP 17; TEMP 98.1; O2SAT 96
[2024-09-06 06:00] VITALS: BP 113/66; PULSE 89; RESP 17; TEMP 97.6; O2SAT 98
[2024-09-06] MEDS ORDERED: aspirin 81mg, enteric-coated 1 TAB TABLET.DR PO ONE (08:05)
[2024-09-06 10:00] VITALS: BP 121/76; PULSE 97; RESP 16; TEMP 98; O2SAT 97
--- NOTE | 2024-09-06 10:44 | VASCULAR REPORT ---
Bilateral lower extremity venous duplex Clinical History: edema Comparison: None Findings: Duplex Doppler evaluation of the deep venous systems of both lower extremities from the common femora l veins to the popliteal veins including color Doppler and spectral/pulsed waveform analysis was perf ormed. RIGHT SIDE: Acute on chronic nonocclusive thrombus visualized in the right common femoral vein, extending to the right external iliac vein. Visualized thrombus appears no C chronic with focal occlusion seen in the right mid femoral vein. The right popliteal vein, deep femoral vein, peroneal vein, and posterior ti bial veins appear patent. LEFT SIDE: The common femoral vein demonstrates appropriate compressibility and waveform variability . There is compressibility/patency of the great saphenous vein at the proximal thigh . The femoral vein demonstrates appropriate compressibility and waveform variability . The deep femoral vein demonstrates appropriate compressibility and waveform variability . The popliteal vein demonstrates appropriate compressibility and waveform variability . There is normal compressibility at the tibioperoneal trunk. Impression: Acute on chronic nonocclusive thrombus visualized in the right common femoral vein, extending to the right external iliac vein. LLE no dvt Critical Result: Stroke Alert Findings discussed with patients RN at 09/06/2024 10:39 AM, and acknowledged receipt and understandi ng of the findings.
[2024-09-06] MEDS: predniSONE 20 mg tablet PO SCH (11:01)
--- NOTE | 2024-09-06 14:03 | PROGRESS NOTE ---
Daily Progress Note Providers to CC ~ Fragoso-Non Protocol Fragoso Indications Met/Not Met: F/C Indications Not Met Antibiotic Timeout Antibiotic Ordered?: No Subjective No acute events overnight. Patient examined at bedside. No new complaints, not in acute distress. Patient denies chest pain, sob, palpitations, abdominal pain, n/v/d. Patient presented with rash, purpura, mostly upper and lower extremity. CT shows mild splenomegaly. Hemolytic panel negative. Severe isolated thrombocytopenia. Given 5 platelet transfusion and steroid with no improvement, continued on supportive care. Pending transfer to [facility]. Objective Vital Signs Date Time Temp Pulse Resp B/P (MAP) Pulse Ox O2 Delivery O2 Flow Rate FiO2 09/06/24 10:00 98.0 97 16 121/76 (91) 97 09/06/24 08:00 Room Air 0.0 21 Result Diagram: 09/05/2453009/05/24530 Physical Exam General: Generalized weakness, A&Ox 3, NAD HEENT: Normocephalic, PERRLA Neck: Supple, trachea midline, no JVD Chest: Clear to auscultation bilaterally Cardiovascular: RRR, S1&S2 GI: Soft and nontender Extremities: No cyanosis/clubbing/or edema CISCO CERTIFIED NETWORK PROFESSIONAL: CN II-XII intact, no focal deficits Musculoskeletal: No paraspinal muscle tenderness, no muscle spasm Skin: Petechiae b/l upper and lower extremities Coagulation Studies Laboratory Tests Test 08/31/24 12:52 08/31/24 14:14 Prothrombin Time 10.3 SECONDS (9.0-12.0) INR International Normalized Ratio 1.0 INR Activated Partial Thromboplast Time 26 SECONDS (22-32) D-Dimer 2.36 MG/L FEU (0-0.50) H D-Dimer Comment Coagulation Comments Fibrinogen 489 MG/DL (177-424) H Coagulation Clinical Comments Problem\Assessment\Plan Problems/Diagnosis: (1) Acute idiopathic thrombocytopenic purpura (2) Thrombocytopenia # Severe ITP # Hx HCV # Splenomegaly -presented with rash, purpura, mostly upper and lower extremity; CT shows mild splenomegaly; hemolytic panel negative -given 5 platelet transfusion and steroid with no improvement, continued on supportive care -spoke on September 02, 2024 [facility] heme/onc Dr.Shavudra Encarnacion- accepted for transfer to higher level of care in their hospital. Awaiting for the bed availability.pending transfer to [facility] # Acute maxillary sinusitis, bilateral # COPD, not in acute exacerbation # Chronic hypoxia on home oxygen at night secondary to COPD # MYKE # Hx tobacco abuse # Hypothyroidism, peripheral neuropathy, CVA DVT/VTE Prophylaxis: SCDs Code Status: Full Code Date of Service: September 06, 2024 Billing Provider: SHANI CHERY Common Visit Codes: [id number] INP/OBS CARE(HIGH) SHANI CHERY September 06, 2024 14:03
[2024-09-06 18:00] VITALS: BP 125/84; PULSE 89; RESP 18; TEMP 98.2; O2SAT 95
[2024-09-06 20:00] VITALS: RESP 18; O2SAT 94
[2024-09-06] MEDS: atorvastatin 20mg tablet PO SCH (20:12)
[2024-09-06 22:00] VITALS: BP 100/62; PULSE 88; RESP 12; TEMP 97.4; O2SAT 96
[2024-09-06] MEDS: temazepam 15mg capsule PO PRN (23:14)
[2024-09-06 23:18] VITALS: PULSE 82; RESP 20; O2SAT 95
[2024-09-07] VITALS (7 sets, daily range): BP systolic 103–114; BP diastolic 48–76; PULSE 74–91; RESP 14–20; TEMP 97.7–98.2; O2SAT 93–100
[2024-09-07 04:48] LABS: BASOPHILS % (AUTO) 0.2 % (0-1); EOSINOPHILS % (AUTO) 0.3 % (0-6); HEMATOCRIT 35.1 % (35.0-45.0); HEMOGLOBIN 11.9 g/dl (12.0-16.0); LYMPHOCYTES # (AUTO) 0.4 X10'3 (1.1-4.8); LYMPHOCYTES % (AUTO) 10.1 % (21-51); MEAN CORPUSCULAR HEMOGLOBIN 28.7 PG (27.0-31.0); MEAN CORPUSCULAR HGB CONC 33.8 g/dL (33.0-36.5); MEAN CORPUSCULAR VOLUME 84.8 FL (78-98); MEAN PLATELET VOLUME 11.7 FL (7.4-10.4); MONOCYTES # (AUTO) 0.3 X10'3 (0-0.9); MONOCYTES % (AUTO) 8.1 % (2-12); NEUTROPHILS # (AUTO) 3.3 X10'3 (1.8-7.7); NEUTROPHILS % (AUTO) 81.3 % (42-75); RED BLOOD COUNT 4.14 X10'6 (4.20-5.60); RED CELL DISTRIBUTION WIDTH 15.1 % (11.5-14.5); WHITE BLOOD COUNT 4.1 X10'3 (4.5-11.0)
[2024-09-07 04:55] LABS: PLATELET COUNT 4 X10'3 (140-440)
[2024-09-07 05:03] LABS: ALANINE AMINOTRANSFERASE 61 U/L (12-78); ALBUMIN 2.7 G/DL (3.4-5.0); ALBUMIN/GLOBULIN RATIO 0.8 (1.1-1.5); ALKALINE PHOSPHATASE 128 IU/L (46-116); ANION GAP 8 (8-16); ASPARTATE AMINO TRANSFERASE 36 U/L (10-37); BILIRUBIN,TOTAL 0.3 MG/DL (0.1-1.0); BLOOD UREA NITROGEN 22 MG/DL (7-18); BUN/CREATININE RATIO 23.4 (10.0-20.0); CALCIUM 8.7 MG/DL (8.5-10.1); CHLORIDE 110 MMOL/L (99-107); CREATININE 0.94 MG/DL (0.40-0.90); GLUCOSE 94 MG/DL (70-104); POTASSIUM 3.9 MMOL/L (3.5-5.1); SODIUM 143 MMOL/L (135-145); TOTAL CARBON DIOXIDE 25.2 MMOL/L (24-32); TOTAL PROTEIN 6.1 G/DL (6.4-8.2); eCRCL 62 ML/MIN; eGFR 61 ML/MIN
[2024-09-07] MEDS ORDERED: aspirin 81mg, enteric-coated 1 TAB TABLET.DR PO SCH (08:00)
[2024-09-07 08:39] LABS: HEPATITIS C VIRUS ANTIBODY Reactive (Non Reactive)
--- NOTE | 2024-09-07 13:19 | PROGRESS NOTE ---
Daily Progress Note Providers to CC ~ Antibiotic Timeout Antibiotic Ordered?: No Subjective No acute events overnight. Patient examined at bedside. No new complaints, not in acute distress. Patient denies chest pain, sob, palpitations, abdominal pain, n/v/d. Patient presented with rash, purpura, mostly upper and lower extremity. CT shows mild splenomegaly. Hemolytic panel negative. Severe isolated thrombocytopenia. Given 5 platelet transfusion and steroid with no improvement, continued on supportive care. Venous US shows acute on chronic DVT. No reported hx of miscarriages or known hx of DVT/PE or SLE. Case discussed with senior electrical engineer Dr. Pedraza who recommended against warfarin at this time. APLS labs pending. Pending transfer to [facility]. Objective Vital Signs Date Time Temp Pulse Resp B/P (MAP) Pulse Ox O2 Delivery O2 Flow Rate FiO2 09/07/24 13:14 90 18 98 Room Air* 0 21 09/07/24 11:00 97.8 112/72 (85) Result Diagram: 09/07/2442309/07/24423 Physical Exam General: Generalized weakness, A&Ox 3, NAD HEENT: Normocephalic, PERRLA Neck: Supple, trachea midline, no JVD Chest: Clear to auscultation bilaterally Cardiovascular: RRR, S1&S2 GI: Soft and nontender Extremities: No cyanosis/clubbing/or edema POLE INCISOR OPERATOR: CN II-XII intact, no focal deficits Musculoskeletal: No paraspinal muscle tenderness, no muscle spasm Skin: Petechiae b/l upper and lower extremities Coagulation Studies Laboratory Tests Test 08/31/24 12:52 08/31/24 14:14 09/07/24 07:50 Prothrombin Time 10.3 SECONDS (9.0-12.0) INR International Normalized Ratio 1.0 INR Activated Partial Thromboplast Time 26 SECONDS (22-32) D-Dimer 2.36 MG/L FEU (0-0.50) H D-Dimer Comment Coagulation Comments Fibrinogen 489 MG/DL (177-424) H Coagulation Clinical Comments Problem\Assessment\Plan Problems/Diagnosis: (1) Acute idiopathic thrombocytopenic purpura (2) Thrombocytopenia # Likely secondary ITP likely 2/2 HCV # Hx HCV # Splenomegaly -presented with rash, purpura, mostly upper and lower extremity; CT shows mild splenomegaly; hemolytic panel negative, Hep C positive -given 5 platelet transfusion and steroid with no improvement, continued on supportive care -spoke on September 02, 2024 [facility] heme/onc Dr.Shavudra Encarnacion- accepted for transfer to higher level of care in their hospital. Awaiting for the bed availability.pending transfer to [facility]. -09/07: Venous US shows acute on chronic DVT. No reported hx of miscarriages or known hx of DVT/PE or SLE. Case discussed with senior electrical engineer Dr. Pedraza who recommended against warfarin at this time. APLS labs pending. Pending transfer to [facility]. # Acute maxillary sinusitis, bilateral # COPD, not in acute exacerbation # Chronic hypoxia on home oxygen at night secondary to COPD # MYKE # Hx tobacco abuse # Hypothyroidism, peripheral neuropathy, CVA DVT/VTE Prophylaxis: SCDs Code Status: Full Code Date of Service: September 07, 2024 Billing Provider: SHANI CHERY Common Visit Codes: [id number] INP/OBS CARE(HIGH) SHANI CHERY September 07, 2024 13:19
[2024-09-07] MEDS: ondansetron 4mg rapidly disintigrating tab PO PRN (20:35)
[2024-09-08] VITALS (7 sets, daily range): BP systolic 101–114; BP diastolic 66–78; PULSE 85–95; RESP 14–19; TEMP 97.8–98.3; O2SAT 94–98
[2024-09-08 05:00] LABS: ALANINE AMINOTRANSFERASE 53 U/L (12-78); ALBUMIN 2.4 G/DL (3.4-5.0); ALBUMIN/GLOBULIN RATIO 0.8 (1.1-1.5); ALKALINE PHOSPHATASE 117 IU/L (46-116); ANION GAP 4 (8-16); ASPARTATE AMINO TRANSFERASE 28 U/L (10-37); BILIRUBIN,TOTAL 0.2 MG/DL (0.1-1.0); BLOOD UREA NITROGEN 23 MG/DL (7-18); BUN/CREATININE RATIO 23.2 (10.0-20.0); CALCIUM 8.3 MG/DL (8.5-10.1); CHLORIDE 110 MMOL/L (99-107); CREATININE 0.99 MG/DL (0.40-0.90); GLUCOSE 85 MG/DL (70-104); POTASSIUM 4.6 MMOL/L (3.5-5.1); SODIUM 143 MMOL/L (135-145); TOTAL CARBON DIOXIDE 28.7 MMOL/L (24-32); TOTAL PROTEIN 5.5 G/DL (6.4-8.2); eCRCL 59 ML/MIN; eGFR 57 ML/MIN
--- NOTE | 2024-09-08 10:14 | PROGRESS NOTE ---
Daily Progress Note Providers to CC ~ Antibiotic Timeout Antibiotic Ordered?: No Subjective No acute events overnight. Patient examined at bedside. No new complaints, not in acute distress. Patient denies chest pain, sob, palpitations, abdominal pain, n/v/d. Patient presented with rash, purpura, mostly upper and lower extremity. CT shows mild splenomegaly. Hemolytic panel negative. Severe isolated thrombocytopenia. Given 5 platelet transfusion and steroid with no improvement, continued on supportive care. Venous US shows acute on chronic DVT. No reported hx of miscarriages or known hx of DVT/PE or SLE. Case discussed with pruner Dr. Pedraza on 09/07/24 who recommended against warfarin at this time. APLS labs pending. IVC ordered. Vss, labs notable for persistent thrombocytopenia. Patient is clinically and hemodynamically stable Pending transfer to [facility]. Objective Vital Signs Date Time Temp Pulse Resp B/P (MAP) Pulse Ox O2 Delivery O2 Flow Rate FiO2 09/08/24 09:02 95 18 96 Room Air* 0 21 09/08/24 06:00 97.8 107/78 (88) Result Diagram: 09/07/24 0424 09/08/24 0421 Physical Exam General: Generalized weakness, A&Ox 3, NAD HEENT: Normocephalic, PERRLA Neck: Supple, trachea midline, no JVD Chest: Clear to auscultation bilaterally Cardiovascular: RRR, S1&S2 GI: Soft and nontender Extremities: No cyanosis/clubbing/or edema DELIVERY DRIVER ASSISTANT: CN II-XII intact, no focal deficits Musculoskeletal: No paraspinal muscle tenderness, no muscle spasm Skin: Bruising b/l upper and lower extremities Coagulation Studies Laboratory Tests Test 08/31/24 12:52 08/31/24 14:14 09/07/24 07:50 Prothrombin Time 10.3 SECONDS (9.0-12.0) INR International Normalized Ratio 1.0 INR Activated Partial Thromboplast Time 26 SECONDS (22-32) D-Dimer 2.36 MG/L FEU (0-0.50) H D-Dimer Comment Coagulation Comments Fibrinogen 489 MG/DL (177-424) H Coagulation Clinical Comments Problem\Assessment\Plan Problems/Diagnosis: (1) Acute idiopathic thrombocytopenic purpura (2) Thrombocytopenia # Likely secondary ITP likely 2/2 HCV # Hx HCV # Splenomegaly -presented with rash, purpura, mostly upper and lower extremity; CT shows mild splenomegaly; hemolytic panel negative, Hep C positive -given 5 platelet transfusion and steroid with no improvement, continued on supportive care -spoke on September 02, 2024 [facility] heme/onc Dr.Shavudra Encarnacoin- accepted for transfer to higher level of care in their hospital. Awaiting for the bed availability.pending transfer to [facility]. -09/07: Venous US shows acute on chronic DVT. No reported hx of miscarriages or known hx of DVT/PE or SLE. Case discussed with pruner Dr. Pedraza who recommended against warfarin at this time. APLS labs pending. Pending transfer to [facility]. -09/08: IVC ordered. # Acute maxillary sinusitis, bilateral # COPD, not in acute exacerbation # Chronic hypoxia on home oxygen at night secondary to COPD # MYKE # Hx tobacco abuse # Hypothyroidism, peripheral neuropathy, CVA DVT/VTE Prophylaxis: SCDs Code Status: Full Code Date of Service: September 08, 2024 Billing Provider: SHANI CHERY Common Visit Codes: [id number] INP/OBS CARE(HIGH) SHANI CHERY September 08, 2024 10:14
[2024-09-08 19:09] LABS: HIV-1 RNA Non Reactive (Non Reactive); HIV-2 RNA Non Reactive (Non Reactive)
[2024-09-09 04:45] LABS: LYMPHOCYTES # (AUTO) 0.7 X10'3 (1.1-4.8); MONOCYTES # (AUTO) 0.5 X10'3 (0-0.9); WHITE BLOOD COUNT 5.5 X10'3 (4.5-11.0)
[2024-09-09 04:47] LABS: BASOPHILS % (AUTO) 0.2 % (0-1); EOSINOPHILS % (AUTO) 0.3 % (0-6); HEMATOCRIT 33.1 % (35.0-45.0); LYMPHOCYTES % (AUTO) 12.9 % (21-51); MEAN CORPUSCULAR HEMOGLOBIN 28.5 PG (27.0-31.0); MEAN CORPUSCULAR HGB CONC 33.3 g/dL (33.0-36.5); MEAN CORPUSCULAR VOLUME 85.7 FL (78-98); MEAN PLATELET VOLUME 9.6 FL (7.4-10.4); MONOCYTES % (AUTO) 9.2 % (2-12); NEUTROPHILS # (AUTO) 4.3 X10'3 (1.8-7.7); NEUTROPHILS % (AUTO) 77.4 % (42-75); RED BLOOD COUNT 3.86 X10'6 (4.20-5.60); RED CELL DISTRIBUTION WIDTH 15.5 % (11.5-14.5)
[2024-09-09 04:54] LABS: PLATELET COUNT 18 X10'3 (140-440)
[2024-09-09 05:05] LABS: ALANINE AMINOTRANSFERASE 45 U/L (12-78); ALBUMIN 2.6 G/DL (3.4-5.0); ALBUMIN/GLOBULIN RATIO 0.8 (1.1-1.5); ALKALINE PHOSPHATASE 113 IU/L (46-116); ANION GAP 5 (8-16); ASPARTATE AMINO TRANSFERASE 23 U/L (10-37); BILIRUBIN,TOTAL 0.2 MG/DL (0.1-1.0); BLOOD UREA NITROGEN 22 MG/DL (7-18); BUN/CREATININE RATIO 20.8 (10.0-20.0); CALCIUM 8.5 MG/DL (8.5-10.1); CHLORIDE 109 MMOL/L (99-107); CREATININE 1.06 MG/DL (0.40-0.90); GLUCOSE 75 MG/DL (70-104); POTASSIUM 4.5 MMOL/L (3.5-5.1); SODIUM 144 MMOL/L (135-145); TOTAL CARBON DIOXIDE 29.8 MMOL/L (24-32); TOTAL PROTEIN 5.8 G/DL (6.4-8.2); eCRCL 55 ML/MIN; eGFR 53 ML/MIN
[2024-09-09 06:00] VITALS: BP 122/71; PULSE 83; RESP 13; TEMP 98.1; O2SAT 97
[2024-09-09 07:00] VITALS: RESP 13; O2SAT 97
[2024-09-09] MEDS ORDERED: levoTHYROXINE 75mcg tablet PO SCH (07:00)
[2024-09-09 09:57] VITALS: RESP 20
--- NOTE | 2024-09-09 13:19 | DISCHARGE SUMMARY ---
Discharge Summary Providers to CC ~ Discharge Summary Admission Diagnosis: Thrombocytopenia Hospital Course DATE OF ADMISSION: 08/31/24 DATE OF DISCHARGE: 09/09/24 Discharge Diagnosis\Comment: Thrombocytopenia Likely secondary ITP likely 2/2 HCV Hx HCV Splenomegaly APLS- unable to exclude HIT- excluded Acute maxillary sinusitis, bilateral COPD, not in acute exacerbation Chronic hypoxia on home oxygen at night secondary to COPD MYKE Hx tobacco abuse Hypothyroidism, peripheral neuropathy, CVA Operations\Procedures: None Consultants: None Complications: None Condition on DC: Stable for transfer Discharge Summary: Hospital Course Ophelia Pathak is a 59-year-old female with a past medical history significant for HCV, CVA, COPD who presented to the ED with chief complaint of acute onset generalized rash in bilateral upper and lower extremities. Patient denies prior autoimmune disease, OH/CAD, CVA, cardiac arrhythmia, DVT/PE, or GIB. Patient denies chest pain, palpitations, shortness of breath, abdominal pain, n/v/d. Patient denies taking antiplatelets or anticoagulants. Diagnostic findings were significant for pancytopenia with severe thrombocytopenia. Pertinent negative findings were negative hemolytic panel. Patient was empirically started on steroid and initially received platelets transfusions on admission. On following days, leukopenia resolved with mild normocytic anemia. However, severe thrombocytopenia remained persistent. Patient denied recent heparin use and 4T score was 2. Hepatitis C panel positive along with mild splenomegaly indicated in CT abdomen/pelvis. Antiphospholipid syndrome labs remain pending. Venous ultrasound indicated acute on chronic DVT. No reported history of miscarriages or known hx of DVT/PE or SLE. Case discussed with pediatric psychiatrist Dr. Pedraza on 09/07/24 who recommended transfer to higher-level facility. Dr.Shavudra Encarnacion accepted transfer. IVC filter was ordered but being transferred to [facility] today. Transfer and discharge delayed due to lack of bed availability at the [facility]. Patient did not experience further complications throughout the entire hospital stay and is clinically and hemodynamically stable for transfer. Patient was seen and examined on the day of discharge. All labs, diagnostic workups, discharge plan discussed with patient in details during visit before discharge. All questions and concerns answered to the best of my professional knowledge. Patient is to be trasnferred to [facility] for further workups and treatment. Physical Exam General: Generalized weakness, A&Ox 3, NAD HEENT: Normocephalic, PERRLA Neck: Supple, trachea midline, no JVD Chest: Clear to auscultation bilaterally Cardiovascular: RRR, S1&S2 GI: Soft and nontender Extremities: No cyanosis/clubbing/or edema IUSS ANALYST: CN II-XII intact, no focal deficits Musculoskeletal: No paraspinal muscle tenderness, no muscle spasm Skin: Bruising b/l upper and lower extremities *Problems/Diagnosis: (1) Acute idiopathic thrombocytopenic purpura Status: Acute (2) Thrombocytopenia Status: Acute Total Time Spent on D/C: > 30 Minutes Date of Service: September 09, 2024 Billing Provider: SHANI CHERY Common Visit Codes: [id number] DISCH DAY >30min SHANI CHERY September 09, 2024 13:17
[2024-09-12 05:12] LABS: ANTITHROMBIN ACTIVITY 109 % (75-135); ANTITHROMBIN ANTIGEN 95 % (72-124)
== END 2024-09-09 10:30 | disposition critical access hospital (66) | DRG 441 ==
LOC: ER 11:48 → ED HOLD 16:48 → PCU 3S 21:10 → SUR 3N 09-02 09:35
PROVIDERS: ADMIT Family Medicine; ATTEND Family Medicine
PROC: 30233R1 Transfusion of Nonautologous Platelets into Peripheral Vein, Percutaneous Approach (ICD-10-PCS; principal; 2024-08-31)
PROC: CB121ZZ Planar Nuclear Medicine Imaging of Lungs and Bronchi using Technetium 99m (Tc-99m) (ICD-10-PCS; 2024-09-01)
DX: B19.20 Unspecified viral hepatitis C without hepatic coma (principal); J15.69 Pneumonia due to other Gram-negative bacteria; J15.9 Unspecified bacterial pneumonia; N17.0 Acute kidney failure with tubular necrosis; D69.3 Immune thrombocytopenic purpura; D61.818 Other pancytopenia; J44.0 Chronic obstructive pulmonary disease with (acute) lower respiratory infection; D68.61 Antiphospholipid syndrome; R65.10 Systemic inflammatory response syndrome (SIRS) of non-infectious origin without acute organ dysfunction; G62.9 Polyneuropathy, unspecified; G47.33 Obstructive sleep apnea (adult) (pediatric); E03.9 Hypothyroidism, unspecified; E86.0 Dehydration; R16.1 Splenomegaly, not elsewhere classified; Z88.0 Allergy status to penicillin; Z88.6 Allergy status to analgesic agent; Z88.5 Allergy status to narcotic agent; Z79.899 Other long term (current) drug therapy; Z87.891 Personal history of nicotine dependence; Z86.73 Personal history of transient ischemic attack (TIA), and cerebral infarction without residual deficits
CPT/HCPCS: 36415; 36430; 70450; 71250; 74176; 78582; 80048; 80053; 80061; 80305; 81001; 82550; 82948; 83010; 83036; 83605; 83615; 83690; 83735; 83880; 84100; 84145; 84443; 84484; 85007; 85025; 85300; 85301; 85379; 85384; 85397; 85610; 85651; 85730; 86140; 86146; 86803; 86885; 86900; 86901; 87040; 87081; 87522; 87535; 87538; 93306; 93970; 94760; 96365; 99285; A9539; A9540; G0378; J0456; J1100; J1956; J2270; J2919; J3490; J7030; J7040; J7060; J7512; P9035